=== PATIENT | female | born 1950 | race Caucasian/White ===

== ENCOUNTER → 2016-03-13 | Outpatient (CLI) | payer OTHER, MEDICARE | LOC: MMPC 09:00 | PROVIDERS: ATTEND Family Medicine | DX: D49.6 Neoplasm of unspecified behavior of brain (principal); E89.40 Asymptomatic postprocedural ovarian failure; R68.82 Decreased libido | CPT/HCPCS: G0463; J1000; J1071 ==

== ENCOUNTER 2016-04-12 02:57 | Observation (INO) | payer OTHER, MEDICARE ==
[2016-04-12] MEDS ORDERED: Sodium Chloride 0.9% 1,000 ML PRIMARY IV ONE (03:06)
[2016-04-12] MEDS ORDERED: NITROGLYCERIN 0.4 MG SL TAB (BOTTLE OF 3) SL ONE (03:06)
[2016-04-12] MEDS ORDERED: MORPHINE SULFATE 4 MG/1 ML IVP ONE (03:06)
[2016-04-12] MEDS ORDERED: ASPIRIN 81 MG (BABY) CHEWABLE TABLET PO ONE (03:06)
[2016-04-12] MEDS ORDERED: ONDANSETRON 4 MG/2 ML VIAL IVP ONE (03:08)
[2016-04-12] MEDS ORDERED: LORazepam 2 MG/1 ML VIAL ONE (03:09)
[2016-04-12 03:11] LABS: BASOPHILS # (AUTO) 0.07 10*3/UL; BASOPHILS % (AUTO) 0.8 % (0-1); HEMATOCRIT 40.2 % (37.0-47.0); HEMOGLOBIN 13.8 g/dL (12.0-16.0); IMM GRAN % (AUTO) 0.2 % (0-5); IMM GRAN# (AUTO) 0.02 10*3/UL; LYMPHOCYTES # (AUTO) 2.17 10*3/uL; LYMPHOCYTES % (AUTO) 24.5 % (10-50); MEAN CORPUSCULAR HEMOGLOBIN 33.2 PG (27-31); MEAN CORPUSCULAR HGB CONC 34.3 g/dL (33-37); MEAN PLATELET VOLUME 8.9 FL (7.4-12.2); MONOCYTES # (AUTO) 0.73 10*3/UL (0.3-0.8); MONOCYTES % (AUTO) 8.2 % (5-15); NEUTROPHILS # (AUTO) 5.79 10*3/UL; NEUTROPHILS % (AUTO) 65.3 % (50-80); PLATELET MORPHOLOGY COMMENT NORMAL MORPHOLOGY (NORM); RED BLOOD COUNT 4.16 10^6/uL (4.20-5.40); WHITE BLOOD COUNT 8.87 10^3/uL (4.8-10.8)
[2016-04-12] MEDS ORDERED: ASPIRIN 81 MG (BABY) CHEWABLE TABLET ONE (03:11)
[2016-04-12] MEDS ORDERED: NITROGLYCERIN 0.4 MG SL ONE (03:11)
--- NOTE | 2016-04-12 03:12 | PDOC ---
Chest Pain HPI - General Chief Complaint: Chest Pain Stated Complaint: CHEST PAIN Date Seen by Provider: 04/12/16 Time Seen by Provider: 03:08 Source: Patient, Spouse Exam Limitations: POSITIVE: Clinical condition Treatment Prior to Arrival: REPORTS: None Nurse's Notes Reviewed & Considered: Yes - History of Present Illness Initial Comments: Patient comes in tonight with chief complaint of chest pain. Patient awoke at approximately midnight with substernal chest pain with radiation to her neck and epigastrium. She has associated shortness of breath. She denies any fever or chills sweats, nausea vomiting or diarrhea, hematuria dysuria, no rashes. Body Location Affected: REPORTS: Chest Timing: REPORTS: Abrupt Duration: 1-3 hours Severity: Severe Context: REPORTS: Sleep Quality: REPORTS: "Pain", Sharpness, Pressure Radiation: REPORTS: None Associated Symptoms: REPORTS: Shortness of Breath, Hurts to Breathe Modifying Factors: improves with: None Reported Similar Symptoms Previously: No Recently seen/treated/hospitalized: No Any Prior Injuries Related to Current Complaint?: No - Patient Home Medications Home Medications: Home Medications Guaifenesin [Mucinex] 600 mg PO Q12H tab 07/11/14 Testosterone Cypionate [Depo-Testosterone] 0.25 ml IM MONTHLY #1 ml 08/24/14 Amitriptyline HCl 2 tab PO QHS PRN #180 tab 01/21/15 Orphenadrine Citrate 100 mg PO DAILY #30 tab-cap 05/16/15 Estradiol Cypionate [Depo-Estradiol] 0.75 ml IM MONTHLY #1 ml 11/08/15 Duloxetine HCl [Cymbalta] 60 mg ORAL QD #90 capsule 02/14/16 Omeprazole 1 cap ORAL QD #30 capsule 02/17/16 Lovastatin 1 tab PO QD #30 tab 03/19/16 - Patient Allergies Allergies/Adverse Reactions: Allergies Allergy/AdvReac Type Severity Reaction Status Date / Time No Known Allergies Allergy Verified 01/21/16 14:43 Past Medical History - heen HEENT History: Hard of Hearing Additional HEENT History: Lt ear, GLASSES Cardiovascular History: Denies History Respiratory History: Other (please comment) Additional Respiratory History: 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...[employer] shunt Blood Disorders: Denies History Psychiatric History: Depression History of Sexually Transmitted Diseases: No Cancer History: Brain History of MDRO: No History of Other Communicable Diseases: No History of Exposure to Communicable Disease: No Alcohol Use: Rarely Substance Use Type: None Previous Surgical History: Yes Type / Date of Surgery: Multiple brain and neck surgeriesfor glomus brain tumor , Right ear repair, tracheostomy, J[employer] shunt, PEG TUBE PLACEMENT, TONSILS, APPY, HYSTERECTOMY Anesthesia Reactions: No Malignant Hyperthermia: No Significant Family History: No pertinent family hx ROS - Limitations ROS Limitations: Clinical Condition Constitution: REPORTS: Denies Symptoms Cardiovascular: REPORTS: Chest Pain Respiratory: REPORTS: Hurts To Breathe, Shortness Of Breath Neurological: REPORTS: Denies Neuro Symptoms Gastrointestinal: REPORTS: Denies GI Symptoms Endocrine: REPORTS: Denies Symptoms Musculoskeletal: REPORTS: Denies MS Symptoms Genitourinary: REPORTS: Denies Symptoms Eyes: REPORTS: Denies Symptoms ENT: REPORTS: Denies Symptoms Skin: REPORTS: Denies Skin Symptoms Lympathic: REPORTS: Denies Lympathic Symptoms Immunologic: POSITIVE: Denies Symptoms Psychiatric: POSITIVE: Anxiety Chest Pain PE - General Appearance General Appearance: REPORTS: Alert, Cooperative, No Evidence of Trauma, Anxious , Severe Distress - HEENT HEENT: POSITIVE: Head Inspection Nml, Eyes Inspection Nml, Ears Inspection Nml, Nose Inspection Nml, PERRL, EOMI - Neck Neck: REPORTS: Normal Inspection - Respiratory Respiratory: REPORTS: Chest Non-Tender, Respiratory Distress, Distinct Pain on Movement, Decreased Air Movement - Cardiovascular Cardiovascular: REPORTS: Regular Rate and Rhythm, Heart Sounds Normal - Abdomen Abdomen: Soft: (All Quadrants), Normal Bowel Sounds: (All Quadrants), Denies Tenderness: (All Quadrants) - Skin Skin: REPORTS: Intact, Normal For Race, Warm, Dry, No Rash - Extremities Extremity: Non-Tender: (All Extremities), Normal ROM: (All Extremities), Normal Inspection: (All Extremities) - Neurological / Psychological Neurological: POSITIVE: Affect Apporpriate Chest Pain Progress - Results Reviewed by me Xrays/CTs/US Reviewed by me: Yes Discussed with Radiologist: Yes Lab Results Reviewed: Yes Lab Results:: Laboratory Results 04/12/16 04/12/16 Range/Units 03:06 03:13 WBC 8.87 (4.8-10.8) 10^3/uL RBC 4.16 L (4.20-5.40) 10^6/uL Hgb 13.8 (12.0-16.0) g/dL Hct 40.2 (37.0-47.0) % MCV 96.6 (81-99) FL MCH 33.2 H (27-31) PG MCHC 34.3 (33-37) g/dL RDW Std Deviation 41.3 (39-50) fL RDW Coeff of Rhett 12.0 (11.5-14.5) % Plt Count 414 H (140-350) 10*3/uL MPV 8.9 (7.4-12.2) FL Immature Gran % (Auto) 0.2 (0-5) % Neut % (Auto) 65.3 (50-80) % Lymph % (Auto) 24.5 (10-50) % Laurel % (Auto) 8.2 (5-15) % Eos % (Auto) 1.0 (0-8) % Baso % (Auto) 0.8 (0-1) % Immature Gran # (Auto) 0.02 10*3/UL Neut # (Auto) 5.79 10*3/UL Lymph # (Auto) 2.17 10*3/uL Laurel # (Auto) 0.73 (0.3-0.8) 10*3/UL Eos # (Auto) 0.09 10*3/UL Baso # (Auto) 0.07 10*3/UL WBC Morphology Comment Normal morphology (NORM) Plt Morphology Comment Normal morphology (NORM) RBC Morph Comment Normal morphology (NORM) D-Dimer 0.53 (0.00-0.59) mg/L Sodium 138 (135-145) meq/L Potassium 3.5 L (3.8-5.2) meq/L Chloride 96 L (98-112) meq/L Carbon Dioxide 31 (23-33) meq/L Anion Gap 11 (5-20) BUN 21 (7-22) mg/dL Creatinine 0.7 (0.50-1.20) mg/dL Estimated GFR > 60 (>60 ml/min/1.73m(2)) BUN/Creatinine Ratio 30.00 H (6-20) Glucose 102 (78-110) mg/dL Calculated Osmolality 288.0 (267-292) mOsm/kg Calcium 9.6 (8.7-10.7) mg/dL Magnesium 2.4 (1.6-2.4) mg/dL Total Bilirubin 0.6 (0.3-1.2) mg/dL AST 16 (8-39) IU/L ALT 29 (9-52) IU/L Alkaline Phosphatase 80 (38-126) IU/L Troponin I < 0.012 (< 0.040) ng/mL NT-Pro-B Natriuret Pep 53.8 (0-125) PG/ML Total Protein 8.1 H (6.1-8.0) g/dL Albumin 4.6 (3.5-4.8) g/dL Globulin 3.5 (2.50-4.10) g/dL Albumin/Globulin Ratio 1.30 (1.3-2.0) mg/g TSH 4.21 H (0.2700-4.2000) uIU/mL Free T4 0.99 (0.93-1.71) ng/dL EKG Interpretation:: POSITIVE: Normal Sinus Rhythm - Patient's Progress Pain Medication Addressed: POSITIVE: Yes Re-Examine Time: 05:20 Status: POSITIVE: Improved Quality Measure Initiative: CP/AMI: POSITIVE: EKG, ASA Quality Measure Initiative: CAP: POSITIVE: SaO2, VS, CXR or CT - Consult Consult (If Yes, Name of Consulting MD & Time Called): Yes (Dr. Salcido. 05:20) Consulting MD will see pt:: POSITIVE: [facility] [place] Admit Counseled: POSITIVE: Patient, Family, RE: Lab Results, RE: Radiology Results, RE : DX Patient Care Time - Estimated PCT Patient Care Time (In Minutes): 30 Vital Signs - Recent Vital Signs Vital Signs: Vital Signs (Last 8 hours) Temp Pulse Resp BP Pulse Ox 04/12/16 02:57 97.3 F 96 18 181/96 97 - VS Reviewed Vital Signs Reviewed: Yes Discharge Clinical Impression: Chest pain Discharge Disposition: Admit to Inpatient Condition: Good Patient Instructions Given at Discharge: Chest Pain (ED) Date Decision to Admit to Inpatient: 04/12/16 Time Decision to Admit to Inpatient: 05:21
[2016-04-12 03:22] LABS: ASPARTATE AMINO TRANSFERASE 16 IU/L (8-39); BILIRUBIN,TOTAL 0.6 mg/dL (0.3-1.2); BLOOD UREA NITROGEN 21 mg/dL (7-22); CALCIUM 9.6 mg/dL (8.7-10.7); CHLORIDE 96 meq/L (98-112); CREATININE 0.7 mg/dL (0.50-1.20); EST GLOMERULAR FILTRATION > 60 (>60 ml/min/1.73m(2)); GLUCOSE 102 mg/dL (78-110); MAGNESIUM 2.4 mg/dL (1.6-2.4); POTASSIUM 3.5 meq/L (3.8-5.2); SODIUM 138 meq/L (135-145); TOTAL PROTEIN 8.1 g/dL (6.1-8.0)
[2016-04-12] MEDS ORDERED: Belladon/PHENobarbital Elixir 10 ML, Lidocaine Viscous Liquid 2% 15 ML, Mag Hyd/Al Hyd/... PO ONE ×3 (03:23)
[2016-04-12 03:30] LABS: NT-PRO BNP 53.8 PG/ML (0-125)
[2016-04-12 03:49] LABS: FREE T4 (FREE THYROXINE) 0.99 ng/dL (0.93-1.71)
--- NOTE | 2016-04-12 04:59 | DI ---
HISTORY: Bilateral calf pain. Chest pain. TECHNIQUE: Sonographic Doppler images were obtained of the bilateral lower extremities were obtained and submitted for interpretation. FINDINGS: There is normal flow, compressibility and phasicity within the deep veins of the bilateral lower extremities. No evidence of deep vein thrombosis is noted. IMPRESSION: 1. No evidence of deep venous thrombosis.
--- NOTE | 2016-04-12 05:02 | EKG ---
[address] [address] Measurements Intervals Harvest Rate: 91 P: 11 MT: 123 QRS: 7 QRSD: 100 T: 17 QT: 385 QTc: 434 Interpretive Statements SINUS RHYTHM No previous ECG available for comparison Electronically Signed On 04-12-16 19:32:37 MST by Cristofer Funes [email or web address]
--- NOTE | 2016-04-12 07:26 | DI ---
HISTORY: Chest pain. TECHNIQUE: Contiguous axial images of the chest were obtained and submitted for interpretation. FINDINGS: There is cardiomegaly. There are small mediastinal lymph nodes. There are calcified hilar nodes bilaterally. There is no a xillary adenopathy. The trachea, main, and segmental bronchi demonstrate no endobronchial lesions. There is bibasilar ground glass opacity. This is most likely atelectasis, although fibrosis and scar ring can have a similar appearance. There is a PEG tube. There is no focal adrenal mass. Limited sections of the upper abdomen otherwise grossly unremarkable . There is no focal pulmonary nodule or pulmonary mass. The visualized osseous structures demonstrate no destructive abnormality. The visualized aorta appears grossly unremarkable, although this is not a CTA. Cholecystectomy clips are noted. There is a tracheostomy tube. IMPRESSION: 1. Bibasilar ground glass opacity most likely represents atelectasis. Fibrosis and scarring can have a similar appearance. Evolving infection difficult to exclude. 2. Cardiomegaly.
[2016-04-12] MEDS ORDERED: NITROGLYCERIN 0.4 MG SL TAB (BOTTLE OF 3) SL PRN (07:43)
[2016-04-12] MEDS ORDERED: MAG HYDROX/AL HYDROX/SIMETH 30 ML SUSP PO PRN (07:43)
[2016-04-12] MEDS ORDERED: AMITRIPTYLINE 10 MG PO PRN (07:43)
[2016-04-12] MEDS ORDERED: NORMAL SALINE 10 ML SYRINGE FLUSH IVP PRN (07:43)
[2016-04-12] MEDS ORDERED: CALCIUM CARBONATE 500 MG (TUMS) CHEWABLE TABLET PO PRN (07:43)
[2016-04-12] MEDS ORDERED: OMEPRAZOLE 40 MG CAPSULE PO SCH (07:45)
[2016-04-12] MEDS ORDERED: Pantoprazole Inj 40 MG in Normal Saline Flush 10 ML IVP SCH (09:00)
[2016-04-12] MEDS: ORPHENADRINE 100 MG PO SCH (09:08)
[2016-04-12] MEDS: DULOXETINE 60 MG CAPSULE PO SCH (09:08)
[2016-04-12] MEDS: HEPARIN 5000 UNIT/1 ML SUBCUT SCH ×2 (09:22→17:02)
[2016-04-12] MEDS ORDERED: KETOROLAC 30 MG/1 ML VIAL IVP SCH (09:45)
[2016-04-12] MEDS: GUAIFENESIN 600 MG TABLET PO SCH ×2 (09:53→21:05)
--- NOTE | 2016-04-12 11:54 | PDOC ---
History and Physical - History of Present Illness Chief Complaint: Chest pain History of Present Illness: This very nice 66-year-old female with past medical history significant for brain tumor with radiation patient is trached and with a PEG tube was complaining around midnight of some substernal chest pain denies any fever chills nausea or vomiting received nitroglycerin subsequently developed a headache from this was treated with the of 15 mg IV of Toradol which relieved her headache and also patient went to sleep she will "I saw her and as stating that her chest pain is improved and her headache is gone. Troponins remain negative she describes her pain as straight up and down when she points with it with her finger with no radiation CT scan of her chest which was done to look at her aorta Dr. Sorensen called the radiologist that I read he said that he cannot comment on the order because it was not a CTA and if he wanted information on the aorta we needed to order a CTA. Past Medical History Tobacco Use: Former Smoker Substance Use Type: None Medication / Allergies Home Medications: Home Medications Medication Instructions Recorded Confirmed Type Guaifenesin [Mucinex] 600 mg PO Q12H tab 07/11/14 04/12/16 History Testosterone Cypionate 0.25 ml IM MONTHLY #1 ml 08/24/14 04/12/16 Clinic [Depo-Testosterone] Amitriptyline HCl 2 tab PO QHS PRN #180 tab 01/21/15 04/12/16 Clinic Orphenadrine Citrate 100 mg PO DAILY #30 tab-cap 05/16/15 04/12/16 Clinic Estradiol Cypionate 0.75 ml IM MONTHLY #1 ml 11/08/15 01/21/16 Clinic [Depo-Estradiol] Duloxetine HCl [Cymbalta] 60 mg ORAL QD #90 capsule 02/14/16 04/12/16 Clinic Omeprazole 1 cap ORAL QD #30 capsule 02/17/16 04/12/16 Clinic Lovastatin 1 tab PO QD #30 tab 03/19/16 04/12/16 Clinic Allergies/Adverse Reactions: Allergies Allergy/AdvReac Type Severity Reaction Status Date / Time No Known Allergies Allergy Verified 01/21/16 14:43 Review of Systems - Review of Systems All Systems: Reviewed & No Additional Complaints Except as Stated ROS Unobtainable: Due to Endotracheal Tube - Respiratory Respiratory: DENIES: Negative System Review, Cough, Sputum, Dyspnea At Rest, Dyspnea with Exertion, Pleuritic Pain, Hemoptysis, Wheezing, Other, See HPI - Gastrointestinal Gastrointestinal / Abdominal: REPORTS: Heartburn - Genitourinary Genitourinary: DENIES: Negative System Review, Pain, Burning, Hematuria, Incontinence, Urgency, Hesitant Stream, Decreased Stream, Nocutria, Discharge, Sexual Dyfunction, Other, See HPI - Neurological Neurologic: DENIES: Negative System Review, Headache, Numbness/Paresthesia, Tremors, Weakness, Seizures, Head Trauma, LOC, Dizziness, Confusion, Memory Loss , Difficulty Walking, Incoordination, Other, See HPI Exam - Vitals Vital Signs: Vital Signs Pulse Rate 73 Height 5 ft 3 in Weight 56.699 kg - General General Appearance: POSITIVE: No Acute Distress, Cooperative - Neck Neck Exam: POSITIVE: Normal Inspection - Respiratory Respiratory Exam: POSITIVE: Clear to Auscultation - Bilaterally, Breathing Non Labored, Normal To Percussion, Normal to Percussion and Palpation - Cardiovascular Cardiovascular Exam: POSITIVE: RRR, No Clicks, No Gallops - GI/Abdominal GI/Abdominal Exam: POSITIVE: Normal Bowel Sounds, Soft Additional GI/Abdominal Exam Details: PEG tube and placement - Extremities Extremities Exam: POSITIVE: No Clubbing Present, No Edema Present, No Cyanosis Present - Neurological Neurological Exam: POSITIVE: Alert, Oriented x 3 Results - Labs CBC and BMP: 04/12/16 03:06 04/12/16 03:13 Labs - Last 24 Hours: Laboratory Results 04/12/16 Range/Units 07:55 Troponin I < 0.012 (< 0.040) ng/mL Assessment and Plan - Patient Problems (1) Chest pain Current Visit: Yes Status: Acute Comment: I believe this is not cardiac, troponins are negative. I believe this is reflux disease I will treat her with Protonix IV twice a day differential diagnosis also peptic ulcer disease. Patient agrees patient was seen with nurse Medel. I will also order a chest CTA to rule out aortic dissection will hydrate aggressively. I will also do a Lexiscan stress test tomorrow
--- NOTE | 2016-04-12 14:31 | DI ---
AP CHEST X-RAY, 04/12/2016 3:06 AM : Clinical History: Chest pain. Previous Exam: 07/05/2015. There is no acute soft tissue or bony abnormality. The patient has a permanent tracheostomy tube in t he position of the 2 appears normal on this AP projection. Heart size is normal. Lungs are clear. Med iastinal structures are normal. There are no pulmonary nodules. Reading: Normal chest x-ray. There has been no interval change.
[2016-04-12 14:32] LABS: CARDIAC CK 36 IU/L (30-135)
[2016-04-12 15:31] LABS: TROPONIN I < 0.012 ng/mL (< 0.040)
[2016-04-12] MEDS: KETOROLAC 30 MG/1 ML VIAL IVP SCH ×2 (15:47→21:04)
[2016-04-12] MEDS: LOVASTATIN 40 MG PO SCH (17:10)
[2016-04-12] MEDS ORDERED: Sodium Chloride 0.9% 1,000 ML ONE (18:02)
[2016-04-12] MEDS: Pantoprazole Inj 40 MG in Normal Saline Flush 10 ML IVP SCH (21:05)
[2016-04-13] MEDS: HEPARIN 5000 UNIT/1 ML SUBCUT SCH ×4 (02:52→23:26)
[2016-04-13] MEDS: KETOROLAC 30 MG/1 ML VIAL IVP SCH (04:46)
[2016-04-13 07:13] LABS: ASPARTATE AMINO TRANSFERASE 12 IU/L (8-39); BILIRUBIN,TOTAL 0.5 mg/dL (0.3-1.2); BLOOD UREA NITROGEN 16 mg/dL (7-22); BUN/CREATININE RATIO 22.85 (6-20); CALCIUM 8.2 mg/dL (8.7-10.7); CHLORIDE 105 meq/L (98-112); CREATININE 0.7 mg/dL (0.50-1.20); EST GLOMERULAR FILTRATION > 60 (>60 ml/min/1.73m(2)); GLUCOSE 71 mg/dL (78-110); HDL CHOLESTEROL 48 mg/dL (40-150); POTASSIUM 4.4 meq/L (3.8-5.2); SODIUM 137 meq/L (135-145); TRIGLYCERIDES 159 mg/dL (44-200)
[2016-04-13] MEDS: Pantoprazole Inj 40 MG in Normal Saline Flush 10 ML IVP SCH ×2 (09:39→20:44)
[2016-04-13] MEDS ORDERED: AMINOPHYLLINE IV ONE (10:00)
[2016-04-13] MEDS: GUAIFENESIN 600 MG TABLET PO SCH ×2 (10:51→20:43)
[2016-04-13] MEDS: DULOXETINE 60 MG CAPSULE PO SCH (10:51)
[2016-04-13] MEDS: ORPHENADRINE 100 MG PO SCH (10:51)
--- NOTE | 2016-04-13 11:04 | STRESSTEST ---
[facility] [place] Interpretive Statements this is a very nice 66 YO pt with hx of trachestomy and peg tube admitted with atypical chest pain and negative troponins x 3 . No acute changes with this portion of test ., will await pictures Electronically Signed On 04-16-16 08:22:28 [facility] by Simba Molina MD [email or web address]
--- NOTE | 2016-04-13 11:57 | PDOC(PROG) ---
Interval History: Patient is doing much better today her heartburn has resolved chest pain headache all gone she did pretty well with her stress test that we did this morning we will be awaiting results Objective : Data - Labs CBC and BMP: 04/12/16 03:06 04/13/16 06:52 Labs - Last 24 Hours: Laboratory Results 04/12/16 04/13/16 Range/Units 14:05 06:52 Sodium 137 (135-145) meq/L Potassium 4.4 (3.8-5.2) meq/L Chloride 105 (98-112) meq/L Carbon Dioxide 28 (23-33) meq/L Anion Gap 4 L (5-20) BUN 16 (7-22) mg/dL Creatinine 0.7 (0.50-1.20) mg/dL Estimated GFR > 60 (>60 ml/min/1.73m(2)) BUN/Creatinine Ratio 22.85 H (6-20) Glucose 71 L (78-110) mg/dL Calculated Osmolality 282.0 (267-292) mOsm/kg Calcium 8.2 L (8.7-10.7) mg/dL Total Bilirubin 0.5 (0.3-1.2) mg/dL AST 12 (8-39) IU/L ALT 24 (9-52) IU/L Alkaline Phosphatase 41 (38-126) IU/L Total Creatine Kinase 36 (30-135) IU/L Troponin I < 0.012 (< 0.040) ng/mL Total Protein 6.0 L (6.1-8.0) g/dL Albumin 3.4 L (3.5-4.8) g/dL Globulin 2.6 (2.50-4.10) g/dL Albumin/Globulin Ratio 1.30 (1.3-2.0) mg/g Triglycerides 159 (44-200) mg/dL Cholesterol 147 (120-200) mg/dL LDL Cholesterol, Calc 67.200 mg/dL VLDL Cholesterol 31 (0-40) mg/dL HDL Cholesterol 48 (40-150) mg/dL Cholesterol/HDL Ratio 3.06 (0-4.0) RATIO Objective : Exam - General General Appearance: Cooperative - Head Head Exam: Normal Inspection - Eye Eye Exam: Normal Appearance - Respiratory Respiratory Exam: Clear to Auscultation - Bilaterally, Breathing Non Labored, Normal To Percussion - Cardiovascular Cardiovascular Exam: RRR, No Murmur, No Clicks, No Gallops - Extremities Extremities Exam: Normal Inspection, No Clubbing Present, No Edema Present - Neurological Neurological Exam: Alert, Oriented x 3, CN II-XII Intact, No Facial Droop Assessment and Plan - Patient Problems (1) Chest pain Current Visit: Yes Status: Acute (2) Reflux esophagitis Current Visit: Yes Status: Acute Comment: Patient is receiving Protonix IV twice a day
[2016-04-13] MEDS: LOVASTATIN 40 MG PO SCH (17:17)
[2016-04-14 06:49] VITALS: RESP 18
[2016-04-14] MEDS: HEPARIN 5000 UNIT/1 ML SUBCUT SCH (07:48)
[2016-04-14] MEDS: GUAIFENESIN 600 MG TABLET PO SCH (08:22)
[2016-04-14] MEDS: ORPHENADRINE 100 MG PO SCH (08:22)
[2016-04-14] MEDS: Pantoprazole Inj 40 MG in Normal Saline Flush 10 ML IVP SCH (08:22)
[2016-04-14] MEDS: DULOXETINE 60 MG CAPSULE PO SCH (08:22)
[2016-04-14 11:35] VITALS: TEMP 97.8
--- NOTE | 2016-04-14 12:56 | DCSUMMARY ---
Hospitalization Summary Hospital Course: Final Discharge Diagnosis: chest pain reflux desease Diagnostic Data, Laboratory Data, and Procedures of Signifigance: Laboratory Results 04/12/16 04/12/16 04/12/16 Range/Units 03:06 03:13 07:55 WBC 8.87 (4.8-10.8) 10^3/uL RBC 4.16 L (4.20-5.40) 10^6/uL Hgb 13.8 (12.0-16.0) g/dL Hct 40.2 (37.0-47.0) % MCV 96.6 (81-99) FL MCH 33.2 H (27-31) PG MCHC 34.3 (33-37) g/dL RDW Std Deviation 41.3 (39-50) fL RDW Coeff of Rhett 12.0 (11.5-14.5) % Plt Count 414 H (140-350) 10*3/uL MPV 8.9 (7.4-12.2) FL Immature Gran % (Auto) 0.2 (0-5) % Neut % (Auto) 65.3 (50-80) % Lymph % (Auto) 24.5 (10-50) % [place] % (Auto) 8.2 (5-15) % Eos % (Auto) 1.0 (0-8) % Baso % (Auto) 0.8 (0-1) % Immature Gran # (Auto) 0.02 10*3/UL Neut # (Auto) 5.79 10*3/UL Lymph # (Auto) 2.17 10*3/uL [place] # (Auto) 0.73 (0.3-0.8) 10*3/UL Eos # (Auto) 0.09 10*3/UL Baso # (Auto) 0.07 10*3/UL WBC Morphology Comment Normal morphology (NORM) Plt Morphology Comment Normal morphology (NORM) RBC Morph Comment Normal morphology (NORM) D-Dimer 0.53 (0.00-0.59) mg/L Sodium 138 (135-145) meq/L Potassium 3.5 L (3.8-5.2) meq/L Chloride 96 L (98-112) meq/L Carbon Dioxide 31 (23-33) meq/L Anion Gap 11 (5-20) BUN 21 (7-22) mg/dL Creatinine 0.7 (0.50-1.20) mg/dL Estimated GFR > 60 (>60 ml/min/1.73m(2)) BUN/Creatinine Ratio 30.00 H (6-20) Glucose 102 (78-110) mg/dL Calculated Osmolality 288.0 (267-292) mOsm/kg Calcium 9.6 (8.7-10.7) mg/dL Magnesium 2.4 (1.6-2.4) mg/dL Total Bilirubin 0.6 (0.3-1.2) mg/dL AST 16 (8-39) IU/L ALT 29 (9-52) IU/L Alkaline Phosphatase 80 (38-126) IU/L Total Creatine Kinase (30-135) IU/L Troponin I < 0.012 < 0.012 (< 0.040) ng/mL NT-Pro-B Natriuret Pep 53.8 (0-125) PG/ML Total Protein 8.1 H (6.1-8.0) g/dL Albumin 4.6 (3.5-4.8) g/dL Globulin 3.5 (2.50-4.10) g/dL Albumin/Globulin Ratio 1.30 (1.3-2.0) mg/g Triglycerides (44-200) mg/dL Cholesterol (120-200) mg/dL LDL Cholesterol, Calc mg/dL VLDL Cholesterol (0-40) mg/dL HDL Cholesterol (40-150) mg/dL Cholesterol/HDL Ratio (0-4.0) RATIO TSH 4.21 H (0.2700-4.2000) uIU/mL Free T4 0.99 (0.93-1.71) ng/dL 04/12/16 04/13/16 Range/Units 14:05 06:52 WBC (4.8-10.8) 10^3/uL RBC (4.20-5.40) 10^6/uL Hgb (12.0-16.0) g/dL Hct (37.0-47.0) % MCV (81-99) FL MCH (27-31) PG MCHC (33-37) g/dL RDW Std Deviation (39-50) fL RDW Coeff of Rhett (11.5-14.5) % Plt Count (140-350) 10*3/uL MPV (7.4-12.2) FL Immature Gran % (Auto) (0-5) % Neut % (Auto) (50-80) % Lymph % (Auto) (10-50) % [place] % (Auto) (5-15) % Eos % (Auto) (0-8) % Baso % (Auto) (0-1) % Immature Gran # (Auto) 10*3/UL Neut # (Auto) 10*3/UL Lymph # (Auto) 10*3/uL [place] # (Auto) (0.3-0.8) 10*3/UL Eos # (Auto) 10*3/UL Baso # (Auto) 10*3/UL WBC Morphology Comment (NORM) Plt Morphology Comment (NORM) RBC Morph Comment (NORM) D-Dimer (0.00-0.59) mg/L Sodium 137 (135-145) meq/L Potassium 4.4 (3.8-5.2) meq/L Chloride 105 (98-112) meq/L Carbon Dioxide 28 (23-33) meq/L Anion Gap 4 L (5-20) BUN 16 (7-22) mg/dL Creatinine 0.7 (0.50-1.20) mg/dL Estimated GFR > 60 (>60 ml/min/1.73m(2)) BUN/Creatinine Ratio 22.85 H (6-20) Glucose 71 L (78-110) mg/dL Calculated Osmolality 282.0 (267-292) mOsm/kg Calcium 8.2 L (8.7-10.7) mg/dL Magnesium (1.6-2.4) mg/dL Total Bilirubin 0.5 (0.3-1.2) mg/dL AST 12 (8-39) IU/L ALT 24 (9-52) IU/L Alkaline Phosphatase 41 (38-126) IU/L Total Creatine Kinase 36 (30-135) IU/L Troponin I < 0.012 (< 0.040) ng/mL NT-Pro-B Natriuret Pep (0-125) PG/ML Total Protein 6.0 L (6.1-8.0) g/dL Albumin 3.4 L (3.5-4.8) g/dL Globulin 2.6 (2.50-4.10) g/dL Albumin/Globulin Ratio 1.30 (1.3-2.0) mg/g Triglycerides 159 (44-200) mg/dL Cholesterol 147 (120-200) mg/dL LDL Cholesterol, Calc 67.200 mg/dL VLDL Cholesterol 31 (0-40) mg/dL HDL Cholesterol 48 (40-150) mg/dL Cholesterol/HDL Ratio 3.06 (0-4.0) RATIO TSH (0.2700-4.2000) uIU/mL Free T4 (0.93-1.71) ng/dL renaldo scan stress test Negative History and Physical pertinent to Admission: HEENT History: Hard of Hearing Additional HEENT History: Lt ear, GLASSES Cardiovascular History: Denies History Respiratory History: Other (please comment) Additional Respiratory History: 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...AUCTIONE[employer] AUTOMOBILE shunt Blood Disorders: Denies History Psychiatric History: Depression History of Sexually Transmitted Diseases: No Cancer History: Brain History of MDRO: No History of Other Communicable Diseases: No History of Exposure to Communicable Disease: No Alcohol Use: Rarely Substance Use Type: None Previous Surgical History: Yes Type / Date of Surgery: Multiple brain and neck surgeriesfor glomus brain tumor , Right ear repair, tracheostomy, AUCTIONEER AUTOMOBILE shunt, PEG TUBE PLACEMENT, TONSILS, APPY, HYSTERECTOMY Course of Hospitalization: Is a very nice 66-year-old female with multiple complications from her glomus brain tumor she has a trach, AUCTIONEER AUTOMOBILE shunt, and PEG tube comes in with atypical chest pain renaldo scan stress test was performed and results are still pending. The chest pain she describes as more of a sensation of up and down when she touches her chest and I believe this is reflux disease with continued her with the IV Protonix twice a day which improved her reflux. Also we found out a few days later that she drinks a 32 ounce of coffee and lot days and also has a PEG tube feedings bolus to 5 at a time believe this combination is given her the reflux disease I suggested she cut down on the coffee and have longer any rales between her tube feedings which I believe pressure on her diaphragm. She is definitely improved and stable condition will be discharged home if stress test is negative which I think it will be. On the date of discharge, the patient was examined: Gen.: No acute distress, alert, nontoxic Heart: Regular rate and rhythm, no murmurs, clicks, gallops, or rubs Lungs: Clear to auscultation bilaterally, breathing is nonlabored Abdomen/GI: Normal tones on auscultation, soft, nontender, nondistended Musculoskeletal/extremities: No clubbing, cyanosis, or edema Vitals reviewed and are listed below Vital Signs (24 hrs) Temp Pulse Pulse Pulse Pulse Resp BP 04/14/16 11:34 97.8 F 70 18 138/59 04/14/16 09:48 64 04/14/16 07:24 68 04/14/16 07:00 57 L 04/14/16 06:49 97.3 F 59 L 18 150/63 04/14/16 04:43 97.3 F 68 19 156/50 04/14/16 03:00 55 L 04/14/16 01:00 98.0 F 58 L 19 169/64 04/13/16 23:00 59 L 04/13/16 20:39 97.6 F 74 20 168/82 04/13/16 19:00 67 73 04/13/16 16:40 97.7 F 59 L 18 155/51 04/13/16 15:00 61 Pulse Ox 04/14/16 11:34 97 04/14/16 09:48 04/14/16 07:24 04/14/16 07:00 04/14/16 06:49 93 04/14/16 04:43 94 04/14/16 03:00 04/14/16 01:00 95 04/13/16 23:00 04/13/16 20:39 94 04/13/16 19:00 04/13/16 16:40 93 04/13/16 15:00 Assessment and Plan: 1. As per discharge assessments above 2. Disposition: Home 3. Condition on discharge, stable and improved. 4. Diet: regular diet via PEG tube 5. Activities: resume normal activities 6. Follow-Up: 1. PCP 2. 7. Medications at the Time of Discharge: Home Medications Medication Instructions Recorded Confirmed Type Guaifenesin [Mucinex] 600 mg PO Q12H tab 07/11/14 04/12/16 History Testosterone Cypionate 0.25 ml IM MONTHLY #1 ml 08/24/14 04/12/16 Clinic [Depo-Testosterone] Amitriptyline HCl 2 tab PO QHS PRN #180 tab 01/21/15 04/12/16 Clinic Orphenadrine Citrate 100 mg PO DAILY #30 tab-cap 05/16/15 04/12/16 Clinic Estradiol Cypionate 0.75 ml IM MONTHLY #1 ml 11/08/15 01/21/16 Clinic [Depo-Estradiol] Duloxetine HCl [Cymbalta] 60 mg ORAL QD #90 capsule 02/14/16 04/12/16 Clinic Omeprazole 1 cap ORAL QD #30 capsule 02/17/16 04/12/16 Clinic Lovastatin 1 tab PO QD #30 tab 03/19/16 04/12/16 Clinic 8. Time, care, counseling and coordination of care for this discharge is greater than 30 minutes. Exam - Vitals Vital Signs: Vital Signs Temperature 97.8 F Temperature Source Temporal Artery Scan Pulse Rate [Apical] 64 Pulse Rate [Pulse Oximeter] 70 Pulse Rate [Telemetry] 68 Pulse Rate 57 Respiratory Rate 18 Blood Pressure [Right Arm] 138/59 Pulse Ox 97 Oxygen Delivery Method Room Air Height 5 ft 3 in Weight 60.963 kg Patient Problems - Patient Problem List (1) Chest pain Status: Acute (2) Reflux esophagitis Status: Acute
--- NOTE | 2016-04-14 13:57 | DI ---
2 DAY LEXISCAN STRESS & REST MYOCARDIAL PERFUSION SCANS, 04/13/2016-04/14/2016.: Clinical History: Chest pain. Previous Exam: None at this facility. Monitoring Physician: Dr. Stew Salcido. Dose: Stress dose: 33 mCi on 04/13/2016. Rest dose: 31 mCi on 04/14/2016. Quantitative Analysis: GoSave program with low dose limited CT chest scan attenuation correctio n. Exam Quality: Excellent. Rejected Beats: Stress = 0%; Rest = 0%. HR: Stress = 61-65 b/m; Rest = 66-6 9 b/m. Left ventricular chamber sizes are normal at stress and rest. Transient ischemic dilatation ratio is 1.02 (normal Pedrito TID <= 1.22; normal Lexiscan TID <= 1.33). Stress LVEF: 84%; rest LVEF: 71%. Stres s and rest myocardial perfusion, wall motion, and thickening are normal on both the attenuated correc shahzad and non-attenuated corrected scans. Limited CT scans of the heart show calcifications in the prox imal half of the LAD, and the proximal portion of the left circumflex artery. There are no lung nodul es or enlarged nodes. Readin. Normal stress and rest left ventricular chamber size. Transient ischemic dilatation ratio is norm al at 1.02. 2. Normal stress and rest LVEF values of 84%, and 71%, respectively. 3. Normal stress and rest myocardial perfusion, wall motion, and thickening. 4. Coronary artery disease manifested by calcifications in the LAD and left circumflex artery. There are no pulmonary nodules and there is no adenopathy.
== END 2016-04-14 15:49 | disposition home or self-care (01) ==
LOC: ER 02:57 → MED/SURG 07:30
PROVIDERS: ADMIT Internal Medicine; ATTEND Internal Medicine
DX: R07.9 Chest pain, unspecified (principal); K21.9 Gastro-esophageal reflux disease without esophagitis; D49.6 Neoplasm of unspecified behavior of brain
CPT/HCPCS: 36415 ×2; 71010; 71260; 78452; 80053 ×2; 80061; 82550; 83735; 83880; 84439; 84443; 84484; 85025; 85379; 93005; 93010; 93016; 93017; 93018; 93970; 94761 ×3; 96374 ×3; 96375 ×2; 96376 ×2; 99284 ×2; A9500; J0280; J1885 ×2; J2785; J1644; J2060; J2270; J2405; J3490; J7030

== ENCOUNTER → 2016-04-17 | Outpatient (CLI) | payer OTHER, MEDICARE | LOC: MMPC 09:00 | PROVIDERS: ATTEND Family Medicine | DX: D49.6 Neoplasm of unspecified behavior of brain (principal) | CPT/HCPCS: G0463; J1000; J1071 ==

== ENCOUNTER → 2016-05-21 | Outpatient (CLI) | payer OTHER, MEDICARE | LOC: MMPC 09:00 | PROVIDERS: ATTEND Family Medicine | DX: D49.6 Neoplasm of unspecified behavior of brain (principal) | CPT/HCPCS: G0463; J1000; J1071 ==

== ENCOUNTER 2016-06-04 14:22 | Observation (INO) | payer OTHER, MEDICARE ==
[2016-06-04] MEDS ORDERED: Sodium Chloride 0.9% 1,000 ML PRIMARY IV ONE (14:32)
[2016-06-04] MEDS ORDERED: NORMAL SALINE 10 ML SYRINGE FLUSH IVP PRN (14:32)
[2016-06-04] MEDS ORDERED: ONDANSETRON 4 MG/2 ML VIAL IVP ONE (14:32)
[2016-06-04] MEDS ORDERED: Pantoprazole Inj 40 MG in Normal Saline Flush 10 ML IVP ONE (14:32)
[2016-06-04] MEDS ORDERED: MORPHINE SULFATE 4 MG/1 ML IVP ONE (14:34)
[2016-06-04 14:45] LABS: BASOPHILS # (AUTO) 0.03 10*3/UL; BASOPHILS % (AUTO) 0.4 % (0-1); EOSINOPHILS % (AUTO) 1.3 % (0-8); HEMOGLOBIN 12.5 g/dL (12.0-16.0); LYMPHOCYTES # (AUTO) 1.02 10*3/uL; MEAN CORPUSCULAR HEMOGLOBIN 32.1 PG (27-31); MEAN CORPUSCULAR HGB CONC 32.1 g/dL (33-37); MEAN PLATELET VOLUME 9.3 FL (7.4-12.2); MONOCYTES # (AUTO) 0.66 10*3/UL (0.3-0.8); MONOCYTES % (AUTO) 8.8 % (5-15); NEUTROPHILS # (AUTO) 5.64 10*3/UL; NEUTROPHILS % (AUTO) 75.5 % (50-80)
--- NOTE | 2016-06-04 14:46 | EKG ---
[address] [address] Measurements Intervals [place] Rate: 74 P: 48 SC: 158 QRS: 62 QRSD: 102 T: 13 QT: 400 QTc: 427 Interpretive Statements SINUS RHYTHM Compared to ECG 04/12/2016 03:19:54 No significant changes Electronically Signed On 06-08-16 10:31:18 MDT by Simba Molina MD [email or web address]
[2016-06-04 14:48] LABS: PLATELET MORPHOLOGY COMMENT NORMAL MORPHOLOGY (NORM); RBC MORPHOLOGY COMMENT NORMAL MORPHOLOGY (NORM); WBC MORPHOLOGY COMMENT NORMAL MORPHOLOGY (NORM)
[2016-06-04 14:57] LABS: BLOOD UREA NITROGEN 34 mg/dL (7-22); BUN/CREATININE RATIO 48.57 (6-20); C-REACTIVE PROTEIN 7.8 mg/dL (0.0-0.9); CALCIUM 9.6 mg/dL (8.7-10.7); EST GLOMERULAR FILTRATION > 60 (>60 ml/min/1.73m(2)); LIPASE 41 IU/L (23-300); MAGNESIUM 2.3 mg/dL (1.6-2.4); SERUM ALBUMIN 4.2 g/dL (3.5-4.8)
--- NOTE | 2016-06-04 15:12 | PDOC ---
Abdomen/Flank HPI - General Chief Complaint: Abdomen Pain Stated Complaint: ABD PAIN Date Seen by Provider: 06/04/16 Time Seen by Provider: 14:25 Source: POSITIVE: Patient Exam Limitations: POSITIVE: No limitations Nurse's Notes Reviewed & Considered: Yes - History of Present Illness Initial Comments: The patient is a 66-year-old female who presents to the emergency department with upper abdominal pain. She states that on Wednesday evening she had onset of nausea and vomiting/dry heaves. She subsequently developed some pain in the epigastric region which has progressively worsened especially today. She currently rates her pain about at a 10 out of 10. She had initially presented to the walk-in clinic and they recommended she come here to the emergency room for evaluation. She has not had any further emesis since Wednesday. She states that she had a normal bowel movement this morning with no blood in the stool or black stool. She has not had any fevers or chills, chest pain or shortness of breath or any other associated symptoms. She does have a history of previous brain tumor and subsequent radiation treatments. As a result of all of this she has a feeding tube as well as a stoma. She also has a shunt. She denies any current headache. She reports she has had previous cholecystectomy and appendectomy. - Patient Home Medications Home Medications: Home Medications Guaifenesin [Mucinex] 600 mg PO Q12H tab 07/11/14 Testosterone Cypionate [Depo-Testosterone] 0.25 ml IM MONTHLY #1 ml 08/24/14 Amitriptyline HCl 2 tab PO QHS PRN #180 tab 01/21/15 Orphenadrine Citrate 100 mg PO DAILY #30 tab-cap 05/16/15 Estradiol Cypionate [Depo-Estradiol] 0.75 ml IM MONTHLY #1 ml 11/08/15 Duloxetine HCl [Cymbalta] 60 mg ORAL QD #90 capsule 02/14/16 Omeprazole 1 cap ORAL QD #30 capsule 02/17/16 Lovastatin 1 tab PO QD #30 tab 05/25/16 - Patient Allergies Allergies/Adverse Reactions: Allergies Allergy/AdvReac Type Severity Reaction Status Date / Time No Known Allergies Allergy Verified 06/04/16 14:26 Past Medical History - heen HEENT History: Hard of Hearing Additional HEENT History: Lt ear, GLASSES Cardiovascular History: Denies History Respiratory History: Other (please comment) Additional Respiratory History: 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...MILIEU TECHNICIAN shunt Blood Disorders: Previous Bld Transfusions Psychiatric History: Depression History of Sexually Transmitted Diseases: No Female Reproductive History: Denies History Obstetrical History: Denies History Cancer History: Brain In Past Year Been Physically Harmed or Verbally Threatened: No History of MDRO: No History of Other Communicable Diseases: No History of Exposure to Communicable Disease: No Tobacco Use: Former Smoker Alcohol Use: Rarely Substance Use Type: None Previous Surgical History: Yes Type / Date of Surgery: Multiple brain and neck surgeriesfor glomus brain tumor , Right ear repair, tracheostomy, MILIEU TECHNICIAN shunt, PEG TUBE PLACEMENT, TONSILS, APPY, HYSTERECTOMY Anesthesia Reactions: No Malignant Hyperthermia: No Significant Family History: No pertinent family hx Past Medical History Reviewed: Reviewed - No Changes ROS - Limitations ROS Limitations: No Limitations Constitution: DENIES: Chills, Fever Cardiovascular: REPORTS: Denies Cardiac Symptoms Respiratory: REPORTS: Denies Resp Symptoms Neurological: DENIES: Headache Gastrointestinal: REPORTS: Abdominal Pain, Nausea, Vomitting (Last emesis was Wednesday night). DENIES: Diarrhea, Black Stools, Bloody Stools, Constipation Endocrine: REPORTS: Denies Symptoms Musculoskeletal: REPORTS: Denies MS Symptoms Genitourinary: REPORTS: Denies Symptoms Skin: DENIES: Rash Abdominal/Flank Pain PE - General Appearance General Appearance: POSITIVE: Alert, Cooperative, No Acute Distress - HEENT HEENT: POSITIVE: Eyes Inspection Nml, Ears Inspection Nml, Nose Inspection Nml, Dry Mucous Membranes - Neck Neck: POSITIVE: Other (Stoma in place) - Respiratory Respiratory: POSITIVE: No Respiratory Distress, Breath Sounds Normal - Cardiovascular Cardiovascular: POSITIVE: Regular Rate and Rhythm, Heart Sounds Normal - Abdomen Abdomen: Soft: (All Quadrants), Normal Bowel Sounds: (All Quadrants), No Guarding: (All Quadrants), No Rebound: (All Quadrants) Additional Abdominal Details: She does have tenderness in the mid and epigastric regions, she does have a feeding tube in place, there is no surrounding erythema or drainage. - Skin Skin: POSITIVE: Intact, No Rash - Extremities Extremity: Normal ROM: (All Extremities), Normal Inspection: (All Extremities) Abdomen Progress - Results Reviewed by me Xrays/CTs/US Reviewed by me: Yes Discussed with Radiologist: Yes Radiology Findings: CT scan of the abdomen and pelvis reveals a gastrostomy tube which is in proper position, shunt which terminates in the right lower quadrant with some small amount of associated fluid, no acute findings per radiologist. Lab Results Reviewed: Yes Lab Results:: Laboratory Results 06/04/16 06/04/16 Range/Units 14:32 14:42 WBC 7.47 (4.8-10.8) 10^3/uL RBC 3.90 L (4.20-5.40) 10^6/uL Hgb 12.5 (12.0-16.0) g/dL Hct 39.0 (37.0-47.0) % MCV 100.0 H (81-99) FL MCH 32.1 H (27-31) PG MCHC 32.1 L (33-37) g/dL RDW Std Deviation 45.3 (39-50) fL RDW Coeff of Rhett 12.7 (11.5-14.5) % Plt Count 372 H (140-350) 10*3/uL MPV 9.3 (7.4-12.2) FL Immature Gran % (Auto) 0.3 (0-5) % Neut % (Auto) 75.5 (50-80) % Lymph % (Auto) 13.7 (10-50) % [place] % (Auto) 8.8 (5-15) % Eos % (Auto) 1.3 (0-8) % Baso % (Auto) 0.4 (0-1) % Immature Gran # (Auto) 0.02 10*3/UL Neut # (Auto) 5.64 10*3/UL Lymph # (Auto) 1.02 10*3/uL [place] # (Auto) 0.66 (0.3-0.8) 10*3/UL Eos # (Auto) 0.10 10*3/UL Baso # (Auto) 0.03 10*3/UL WBC Morphology Comment Normal morphology (NORM) Plt Morphology Comment Normal morphology (NORM) RBC Morph Comment Normal morphology (NORM) Sodium 139 (135-145) meq/L Potassium 3.9 (3.8-5.2) meq/L Chloride 96 L (98-112) meq/L Carbon Dioxide 32 (23-33) meq/L Anion Gap 11 (5-20) BUN 34 H (7-22) mg/dL Creatinine 0.7 (0.50-1.20) mg/dL Estimated GFR > 60 (>60 ml/min/1.73m(2)) BUN/Creatinine Ratio 48.57 H (6-20) Glucose 88 (78-110) mg/dL Calculated Osmolality 294.0 H (267-292) mOsm/kg Lactic Acid 0.8 (0.70-2.10) MMOL/L Calcium 9.6 (8.7-10.7) mg/dL Magnesium 2.3 (1.6-2.4) mg/dL Total Bilirubin 0.6 (0.3-1.2) mg/dL AST 19 (8-39) IU/L ALT 27 (9-52) IU/L Alkaline Phosphatase 73 (38-126) IU/L Troponin I < 0.012 (< 0.040) ng/mL C-Reactive Protein 7.8 H (0.0-0.9) mg/dL Total Protein 7.7 (6.1-8.0) g/dL Albumin 4.2 (3.5-4.8) g/dL Globulin 3.5 (2.50-4.10) g/dL Albumin/Globulin Ratio 1.20 L (1.3-2.0) mg/g Amylase 41 (30-110) U/L Lipase 41 (23-300) IU/L Ur Collection Type Clean catch urine Urine Color Yellow Urine Clarity Clear (CLEAR) Urine pH 6.5 (5.0-8.5) Ur Specific [place] 1.010 (1.005-1.030) Urine Protein 30 (NEG) mg/dl Urine Glucose (UA) Negative (NEG) mg/dL Urine Ketones Negative (NEG) Urine Occult Blood Negative (NEG) Urine Nitrate Negative (NEG) Urine Bilirubin Negative (NEG) Urine Urobilinogen 2.0 (0.2) EU/dL Ur Leukocyte Esterase Negative (NEG) Urine RBC None (NONE) /hpf Urine WBC None (NONE) Ur Squamous Epith Cells Many (NONE) Ur Renal Epithelial Cell None (NONE) Urine Crystals None Urine Bacteria Rare (NONE) Urine Casts None (NONE) Urine Mucus Rare (NONE) Urine Trichomonas None (NONE) Urine Yeast None (NONE) Ur Culture Indicated? Culture not set EKG Interpreted/Reviewed By Me:: Yes EKG Interpretation:: POSITIVE: Normal Sinus Rhythm, Normal Rate, Normal Intervals, Normal QRS, Normal ST/T - Patient's Progress MDM / ED Course: An IV was established and she did receive 4 mg of morphine and 4 mg of Zofran IV for pain and nausea. On arrival she was rating her pain at a 10 out of 10. She also received Protonix 40 mg IV. Her pain improved however only came down to about a 7 out of 10. She had a repeat dose of morphine and her pain improved slightly down to a 6 out of 10. Her lab work is essentially unremarkable except for slightly elevated BUN and elevated CRP. Urinalysis is normal. CT scan of the abdomen and pelvis reveals a gastrostomy tube in proper position, shunt terminating in the right lower quadrant with associated small amount of fluid, no acute findings per radiologist. These findings were discussed with the patient. She states that she feels better however still is having 6 out of 10 pain and nausea. Treatment options were discussed including outpatient management versus being admitted to the hospital. The patient felt more comfortable being admitted. I subsequently discussed the patient with Dr. Salcido and he has agreed to admit the patient for further care. - Consult Counseled: POSITIVE: Patient, RE: Lab Results, RE: Radiology Results, RE: DX, RE : Need for F/U Patient Care Time - Estimated PCT Patient Care Time (In Minutes): 30 Vital Signs - Recent Vital Signs Vital Signs: Vital Signs (Last 8 hours) Temp Pulse Resp BP Pulse Ox 06/04/16 17:01 97.0 F 76 16 119/74 97 06/04/16 15:30 81 16 127/64 93 06/04/16 14:22 97.9 F 82 16 122/79 94 - VS Reviewed Vital Signs Reviewed: Yes Discharge Clinical Impression: Abdominal pain, Gastritis Discharge Disposition: Admit to Observation Condition: Fair
[2016-06-04] MEDS ORDERED: MORPHINE SULFATE 2 MG/1 ML IVP ONE (16:17)
[2016-06-04 16:38] LABS: BILIRUBIN,URINE NEGATIVE (NEG); COLOR,URINE YELLOW; GLUCOSE, URINE (UA) NEGATIVE (NEG); NITRATE,URINE NEGATIVE (NEG); OCCULT BLOOD,URINE NEGATIVE (NEG); PH,URINE 6.5 (5.0-8.5); PROTEIN,URINE 30 mg/dl (NEG)
[2016-06-04 16:39] LABS: CLARITY,URINE CLEAR (CLEAR)
--- NOTE | 2016-06-04 16:40 | DI ---
CT ABDOMEN SCAN WITH IV CONTRAST, 06/04/2016 2:33 PM : Clinical History: Abdominal pain. Previous Exam: 06/07/2015. Scans are performed from the lower lung bases through the liver and kidneys with IV contrast. 95 ml o f Isovue 300 was injected IV. No oral or rectal contrast was ordered. The lung bases are clear. There is a roughly 11 mm diameter low-density lesion toward the lateral and anterior aspect of the right lobe of the liver and this was present before and has not changed. Sinc e the prior examination, the patient has had a cholecystectomy and the common bile duct measures 5 mm . There is a percutaneous feeding gastrostomy tube in place. There is shunt located between T11 and L 2 located in the thoracic canal and this communicates with the peritoneal cavity. There is no abnorma lity of the spleen, pancreas, and adrenal glands. Both kidneys are normal in size, shape, position an d contour. There is no hydronephrosis or hydroureter. No renal or ureteral calculi are present. There are no abnormal retrocrural or periaortic nodes. No ascites is present. READING: Normal CT abdomen scan. The patient has a feeding gastrostomy tube as well as a shunt catheter betwee n the thoracolumbar junction portion of the canal and the peritoneal cavity. CT PELVIS SCAN WITH IV CONTRAST, 06/04/2016 2:33 PM: Clinical History: See above. Previous Exam: 06/07/2015. Scans are performed from just superior to the umbilicus to the symphysis pubis with IV contrast. This is the same bolus of contrast used for the CT scans of the abdomen. Scans through the lower abdomen and pelvis show no masses. There is no adenopathy. There is "malrotat ion" of the cecum. The cecum is in the right upper quadrant in the gallbladder fossa. The appendix is normal. The small bowel, terminal ileum, and ileocecal valve are normal. The colon is also normal. T here are no hernias. The shunt catheter terminates in the pelvis in the right lower quadrant just sup erior to the bladder. In the right side of the pelvis, there is a fluid collection. The patient is st atus post hysterectomy and bilateral salpingo-oophorectomy. READING: There is a small fluid collection in the right side of the cul-de-sac and this is directly posterior to the location of the shunt catheter that terminates in the right lower quadrant and is inserted in the spinal canal at the thoracolumbar junction. The differential would be between CSF in the right si de of the pelvis versus true ascites.
[2016-06-04 16:42] LABS: SQUAMOUS EPITHELIAL CELL,UR MANY; URINE SAMPLE TYPE CLEAN CATCH URINE
[2016-06-04 16:43] LABS: BACTERIA,URINE RARE
--- NOTE | 2016-06-04 18:08 | PDOC ---
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 The IV Protonix last time I worked very well for her she was discharged home and was told that the she does not drink this much coffee but apparently she went home in [place] did the same thing comes back to the ER today with some epigastric pain which was relieved by Protonix and Dilaudid. Past Medical History Tobacco Use: Former Smoker Substance Use Type: None Medication / Allergies Home Medications: Home Medications Medication Instructions Recorded Confirmed Type Guaifenesin [Mucinex] 600 mg PO Q12H tab 07/11/14 06/04/16 History Testosterone Cypionate 0.25 ml IM MONTHLY #1 ml 08/24/14 06/04/16 Clinic [Depo-Testosterone] Amitriptyline HCl 2 tab PO QHS PRN #180 tab 01/21/15 06/04/16 Clinic Orphenadrine Citrate 100 mg PO DAILY #30 tab-cap 05/16/15 06/04/16 Clinic Estradiol Cypionate 0.75 ml IM MONTHLY #1 ml 11/08/15 06/04/16 Clinic [Depo-Estradiol] Duloxetine HCl [Cymbalta] 60 mg ORAL QD #90 capsule 02/14/16 06/04/16 Clinic Omeprazole 1 cap ORAL QD #30 capsule 02/17/16 06/04/16 Clinic Lovastatin 1 tab PO QD #30 tab 05/25/16 06/04/16 Clinic Allergies/Adverse Reactions: Allergies Allergy/AdvReac Type Severity Reaction Status Date / Time No Known Allergies Allergy Verified 06/04/16 14:26 Review of Systems - Review of Systems All Systems: Reviewed & No Additional Complaints Except as Stated - Respiratory Respiratory: DENIES: Negative System Review, Cough, Sputum, Dyspnea At Rest, Dyspnea with Exertion, Pleuritic Pain, Hemoptysis, Wheezing, Other, See HPI - Cardiovascular Cardiovascular: DENIES: Negative System Review, Chest Pain, Edema, Syncope, Palpitations, Orthopnea, Paroxysmal Nocturnal Dyspnea, Other, See HPI - Gastrointestinal Gastrointestinal / Abdominal: REPORTS: Nausea, Heartburn - Genitourinary Genitourinary: DENIES: Negative System Review, Pain, Burning, Hematuria, Incontinence, Urgency, Hesitant Stream, Decreased Stream, Nocutria, Discharge, Sexual Dyfunction, Other, See HPI Exam - General General Appearance: POSITIVE: Cooperative - Head Head Exam: POSITIVE: Normal Inspection - Eye Eye Exam: POSITIVE: Normal Appearance - Respiratory Respiratory Exam: POSITIVE: Clear to Auscultation - Bilaterally, Breathing Non Labored, Normal To Percussion, Normal to Percussion and Palpation - Cardiovascular Cardiovascular Exam: POSITIVE: RRR, No Murmur, No Clicks - GI/Abdominal GI/Abdominal Exam: POSITIVE: Normal Bowel Sounds, Non Tender, Non Distended, Soft - Extremities Extremities Exam: POSITIVE: No Clubbing Present, No Edema Present, No Cyanosis Present Results - Labs CBC and BMP: 06/04/16 14:42 06/04/16 14:42 Assessment and Plan - Patient Problems (1) Abdominal pain Current Visit: Yes Status: Acute (2) Gastritis Current Visit: Yes Status: Acute (3) Reflux esophagitis Current Visit: No Status: Acute - Assessment / Plan Additional Assessment/Plan Details: #1 gastritis with severe reflux disease we'll continue IV Protonix and pain control nothing by mouth since she has a PEG tube her CT scan showed no acute findings of fluid. This will resolve shortly and patient can be discharged home Continue her usual medications Photo / Body Diagrams - Uploaded Photos Uploaded Photos:
[2016-06-04] MEDS ORDERED: LIDOCAINE W/ SODIUM BICARB 0.5 ML SYR SUBD PRN (18:33)
[2016-06-04] MEDS ORDERED: ONDANSETRON 4 MG/2 ML VIAL IVP PRN (18:33)
[2016-06-04] MEDS ORDERED: ESTRADIOL CYPIONATE IM SCH (18:33)
[2016-06-04] MEDS: HYDROmorphone 2 MG/1 ML IVP PRN (20:19)
[2016-06-04] MEDS: Metoclopramide Inj 10 MG/2 ML VIAL IVP SCH (20:20)
[2016-06-04] MEDS: NORMAL SALINE 10 ML SYRINGE FLUSH IVP PRN (20:20)
[2016-06-04] MEDS: GUAIFENESIN 600 MG TABLET PO SCH (20:27)
[2016-06-04] MEDS ORDERED: Simvastatin Tab 20 MG TAB PO SCH (21:00)
[2016-06-04] MEDS ORDERED: AMITRIPTYLINE 25 MG TABLET PO PRN (21:00)
[2016-06-05] MEDS: HYDROmorphone 2 MG/1 ML IVP PRN (04:28)
[2016-06-05] MEDS: Metoclopramide Inj 10 MG/2 ML VIAL IVP SCH (04:29)
[2016-06-05] MEDS: NORMAL SALINE 10 ML SYRINGE FLUSH IVP PRN ×2 (04:29→09:23)
[2016-06-05 07:55] VITALS: RESP 20; TEMP 97.5
[2016-06-05] MEDS ORDERED: ENOXAPARIN SODIUM 40 MG/0.4 ML SYRINGE SUBCUT SCH (09:00)
[2016-06-05] MEDS ORDERED: Simvastatin Tab 20 MG TAB PO SCH (09:00)
[2016-06-05] MEDS ORDERED: DULOXETINE 60 MG CAPSULE PO SCH (09:00)
[2016-06-05] MEDS ORDERED: Pantoprazole Inj 40 MG in Normal Saline Flush 10 ML IVP SCH (09:00)
--- NOTE | 2016-06-05 09:04 | DCSUMMARY ---
Hospitalization Summary Hospital Course: Final Discharge Diagnosis: Current Visit Problems Problem Status Priority Diagnosed Code Abdominal pain Acute R10.9 Gastritis Acute K29.70 Reflux disease Diagnostic Data, Laboratory Data, and Procedures of Signifigance: Laboratory Results 06/04/16 06/04/16 Range/Units 14:32 14:42 WBC 7.47 (4.8-10.8) 10^3/uL RBC 3.90 L (4.20-5.40) 10^6/uL Hgb 12.5 (12.0-16.0) g/dL Hct 39.0 (37.0-47.0) % MCV 100.0 H (81-99) FL MCH 32.1 H (27-31) PG MCHC 32.1 L (33-37) g/dL RDW Std Deviation 45.3 (39-50) fL RDW Coeff of Rhett 12.7 (11.5-14.5) % Plt Count 372 H (140-350) 10*3/uL MPV 9.3 (7.4-12.2) FL Immature Gran % (Auto) 0.3 (0-5) % Neut % (Auto) 75.5 (50-80) % Lymph % (Auto) 13.7 (10-50) % [place] % (Auto) 8.8 (5-15) % Eos % (Auto) 1.3 (0-8) % Baso % (Auto) 0.4 (0-1) % Immature Gran # (Auto) 0.02 10*3/UL Neut # (Auto) 5.64 10*3/UL Lymph # (Auto) 1.02 10*3/uL [place] # (Auto) 0.66 (0.3-0.8) 10*3/UL Eos # (Auto) 0.10 10*3/UL Baso # (Auto) 0.03 10*3/UL WBC Morphology Comment Normal morphology (NORM) Plt Morphology Comment Normal morphology (NORM) RBC Morph Comment Normal morphology (NORM) Sodium 139 (135-145) meq/L Potassium 3.9 (3.8-5.2) meq/L Chloride 96 L (98-112) meq/L Carbon Dioxide 32 (23-33) meq/L Anion Gap 11 (5-20) BUN 34 H (7-22) mg/dL Creatinine 0.7 (0.50-1.20) mg/dL Estimated GFR > 60 (>60 ml/min/1.73m(2)) BUN/Creatinine Ratio 48.57 H (6-20) Glucose 88 (78-110) mg/dL Calculated Osmolality 294.0 H (267-292) mOsm/kg Lactic Acid 0.8 (0.70-2.10) MMOL/L Calcium 9.6 (8.7-10.7) mg/dL Magnesium 2.3 (1.6-2.4) mg/dL Total Bilirubin 0.6 (0.3-1.2) mg/dL AST 19 (8-39) IU/L ALT 27 (9-52) IU/L Alkaline Phosphatase 73 (38-126) IU/L Troponin I < 0.012 (< 0.040) ng/mL C-Reactive Protein 7.8 H (0.0-0.9) mg/dL Total Protein 7.7 (6.1-8.0) g/dL Albumin 4.2 (3.5-4.8) g/dL Globulin 3.5 (2.50-4.10) g/dL Albumin/Globulin Ratio 1.20 L (1.3-2.0) mg/g Amylase 41 (30-110) U/L Lipase 41 (23-300) IU/L Ur Collection Type Clean catch urine Urine Color Yellow Urine Clarity Clear (CLEAR) Urine pH 6.5 (5.0-8.5) Ur Specific [place] 1.010 (1.005-1.030) Urine Protein 30 (NEG) mg/dl Urine Glucose (UA) Negative (NEG) mg/dL Urine Ketones Negative (NEG) Urine Occult Blood Negative (NEG) Urine Nitrate Negative (NEG) Urine Bilirubin Negative (NEG) Urine Urobilinogen 2.0 (0.2) EU/dL Ur Leukocyte Esterase Negative (NEG) Urine RBC None (NONE) /hpf Urine WBC None (NONE) Ur Squamous Epith Cells Many (NONE) Ur Renal Epithelial Cell None (NONE) Urine Crystals None Urine Bacteria Rare (NONE) Urine Casts None (NONE) Urine Mucus Rare (NONE) Urine Trichomonas None (NONE) Urine Yeast None (NONE) Ur Culture Indicated? Culture not set History and Physical pertinent to Admission: Course of Hospitalization: This very nice 66-year-old female known to our service she comes in with severe reflux disease was started on IV Protonix and now was given also Reglan this really improved her reflux and down it is now resolved she is back to her normal baseline and will really like to go home we discussed the sending her home on Reglan and she does agree maybe this will help her in the future with her reflux she will follow-up with her primary care physician as an outpatient will receive resume her tube feeds at home On the date of discharge, the patient was examined: Gen.: No acute distress, alert, nontoxic Heart: Regular rate and rhythm, no murmurs, clicks, gallops, or rubs Lungs: Clear to auscultation bilaterally, breathing is nonlabored Abdomen/GI: Normal tones on auscultation, soft, nontender, nondistended Musculoskeletal/extremities: No clubbing, cyanosis, or edema Vitals reviewed and are listed below Assessment and Plan: 1. As per discharge assessments above 2. Disposition: Home 3. Condition on discharge, stable and improved. 4. Diet: regular diet 5. Activities: resume normal activities 6. Follow-Up: 1. PCP 2. 7. Medications at the Time of Discharge: 8. Time, care, counseling and coordination of care for this discharge is greater than 30 minutes. Exam - Vitals Vital Signs: Vital Signs Temperature 97.5 F Temperature Source Oral Pulse Rate [Apical] 68 Pulse Rate [Pulse Oximeter 61 Left] Respiratory Rate 20 Blood Pressure [Left Arm] 115/54 Blood Pressure [Right Arm] 112/50 Pulse Ox 90 Oxygen Flow Rate 16 Oxygen Delivery Method Room Air Height 5 ft 3 in Weight 65.862 kg Patient Problems - Patient Problem List (1) Abdominal pain Current Visit: Yes Status: Acute (2) Gastritis Current Visit: Yes Status: Acute (3) Reflux esophagitis Current Visit: No Status: Acute
[2016-06-05] MEDS: GUAIFENESIN 600 MG TABLET PO SCH (09:23)
== END 2016-06-05 10:18 | disposition home or self-care (01) ==
LOC: ER 14:22 → MED/SURG 17:17
PROVIDERS: ADMIT Internal Medicine; ATTEND Internal Medicine
DX: K29.70 Gastritis, unspecified, without bleeding (principal); K21.0 Gastro-esophageal reflux disease with esophagitis
CPT/HCPCS: 74177; 80053; 81001; 81003; 82150; 83605; 83690; 83735; 84484; 85025; 86140; 93005; 93010; 96374 ×2; 96375 ×2; 96376; 99284 ×2; J1650; J2765 ×2; J1170; J2270; J2405; J3490; J7030

== ENCOUNTER → 2016-06-04 | Outpatient (CLI) | payer OTHER, MEDICARE | LOC: MMPC 09:00 | DX: R10.0 Acute abdomen (principal) | CPT/HCPCS: 99213; G0463 ==

== ENCOUNTER → 2016-06-25 | Outpatient (CLI) | payer OTHER, MEDICARE | LOC: MMPC 09:00 | PROVIDERS: ATTEND Family Medicine | DX: D49.6 Neoplasm of unspecified behavior of brain (principal) | CPT/HCPCS: G0463; J1000; J1071 ==

== ENCOUNTER → 2016-06-29 | Outpatient (CLI) | payer OTHER, MEDICARE | LOC: MMPC 09:00 | PROVIDERS: ATTEND Family Medicine | DX: K21.9 Gastro-esophageal reflux disease without esophagitis (principal); G47.00 Insomnia, unspecified; Z93.0 Tracheostomy status | CPT/HCPCS: 99214; G0463 ==

== ENCOUNTER → 2016-07-16 | Outpatient (CLI) | payer OTHER, MEDICARE | LOC: MMPC 11:11 | PROVIDERS: ATTEND Surgery | DX: K94.20 Gastrostomy complication, unspecified (principal); Z93.1 Gastrostomy status | CPT/HCPCS: 99212; G0463 ==

== ENCOUNTER → 2016-07-30 | Outpatient (CLI) | payer OTHER, MEDICARE | LOC: MMPC 09:00 | PROVIDERS: ATTEND Family Medicine | DX: D49.6 Neoplasm of unspecified behavior of brain (principal) | CPT/HCPCS: G0463; J1000; J1071 ==

== ENCOUNTER → 2016-09-04 | Outpatient (CLI) | payer OTHER, MEDICARE | LOC: MMPC 09:00 | PROVIDERS: ATTEND Family Medicine | DX: D49.6 Neoplasm of unspecified behavior of brain (principal); E89.40 Asymptomatic postprocedural ovarian failure; R68.82 Decreased libido | CPT/HCPCS: G0463; J1000; J1071 ==

== ENCOUNTER 2017-04-11 12:12 | Observation (INO) ==
[2017-04-11] MEDS ORDERED: NORMAL SALINE 10 ML SYRINGE FLUSH IVP PRN ×3 (12:34→14:10)
[2017-04-11] MEDS ORDERED: Sodium Chloride 0.9% 1,000 ML PRIMARY IV ONE (12:34)
[2017-04-11 13:02] LABS: BASOPHILS # (AUTO) 0.05 10*3/UL; BASOPHILS % (AUTO) 0.6 % (0-1); EOSINOPHILS # (AUTO) 0.15 10*3/UL; EOSINOPHILS % (AUTO) 1.8 % (0-8); Hematocrit [HCT] 39.8 % (37.0-47.0); Hemoglobin [HGB] 12.8 g/dL (12.0-16.0); LYMPHOCYTES # (AUTO) 0.88 10*3/uL; MEAN CORPUSCULAR HEMOGLOBIN 31.8 PG (27-31); MEAN CORPUSCULAR HGB CONC 32.2 g/dL (33-37); MEAN CORPUSCULAR VOLUME 98.8 FL (81-99); MEAN PLATELET VOLUME 9.6 FL (7.4-12.2); MONOCYTES % (AUTO) 7.2 % (5-15); NEUTROPHILS % (AUTO) 79.6 % (50-80); RED BLOOD COUNT 4.03 10^6/uL (4.20-5.40)
[2017-04-11 13:07] LABS: PLATELET MORPHOLOGY COMMENT NORMAL MORPHOLOGY (NORM); RBC MORPHOLOGY COMMENT NORMAL MORPHOLOGY (NORM); WBC MORPHOLOGY COMMENT NORMAL MORPHOLOGY (NORM)
--- NOTE | 2017-04-11 13:10 | PDOC ---
General Adult HPI - General Chief Complaint: General Medical Stated Complaint: FEEDING TUBE COMING OUT Date Seen by Provider: 04/11/17 Time Seen by Provider: 12:25 Source: POSITIVE: Patient Exam Limitations: POSITIVE: No limitations Nurse's Notes Reviewed & Considered: Yes - History of Present Illness Initial Comment: The patient is a 67-year-old female who presents to the emergency department with complaints of leakage from her feeding tube. She states that this morning it seemed like the tube was partially coming out. She also has had some leakage around the tube. For the past couple of days she has also had increased soreness at the insertion site. She denies any fevers or chills. She does not have any associated generalized abdominal pain. Have you received a tetanus shot in the past 10 years?: Yes - Patient Home Medications Home Medications: Home Medications Guaifenesin [Mucinex] 600 mg PO Q12H tab 07/11/14 Testosterone Cypionate [Depo-Testosterone] 0.25 ml IM MONTHLY #1 ml 08/24/14 duloxetine 60 mg capsule,delayed release 60 mg ORAL QD #90 cap 11/16/16 amitriptyline 10 mg tablet 20 mg PO QHS #180 tab 11/25/16 hydrocodone 5 mg-acetaminophen 325 mg tablet 1 tab PO Q4-6H PRN #14 tab metoclopramide 10 mg tablet 10 mg PO DAILY #90 tab 12/30/16 estradiol cypionate 5 mg/mL intramuscular oil 3.7 mg IM MONTHLY #1 ml 01/18/17 lovastatin 40 mg tablet 40 mg PO QD #90 tab 03/16/17 omeprazole 40 mg capsule,delayed release 40 mg PO QD #90 cap 03/16/17 orphenadrine citrate ER 100 mg tablet,extended release 100 mg PO DAILY #90 tab- cap 03/25/17 - Patient Allergies Allergies/Adverse Reactions: Allergies 3 Allergy/AdvReac Type Severity Reaction Status Date / Time No Known Allergies Allergy Verified 04/11/17 13:05 Past Medical History - heen HEENT History: Hard of Hearing Additional HEENT History: Lt ear, GLASSES Cardiovascular History: Hypertension Respiratory History: Other (please comment) Additional Respiratory History: 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...ATTACHE shunt Blood Disorders: Previous Bld Transfusions Psychiatric History: Depression History of Sexually Transmitted Diseases: No Cancer History: Brain History of MDRO: No History of Other Communicable Diseases: No History of Exposure to Communicable Disease: No Alcohol Use: Rarely In the Past 12 Months, Have Used or Abuse Any Substance: None Previous Surgical History: Yes Type / Date of Surgery: Multiple brain and neck surgeriesfor glomus brain tumor , Right ear repair, tracheostomy, ATTACHE shunt, PEG TUBE PLACEMENT, TONSILS, APPY, HYSTERECTOMY Anesthesia Reactions: No Malignant Hyperthermia: No Significant Family History: No pertinent family hx Past Medical History Reviewed: Reviewed - No Changes ROS - Limitations ROS Limitations: No Limitations Constitution: DENIES: Chills, Fever Cardiovascular: REPORTS: Denies Cardiac Symptoms Respiratory: REPORTS: Denies Resp Symptoms General Adult Exam - General Appearance General Appearance: POSITIVE: Alert, Cooperative, No Acute Distress - HEENT HEENT: POSITIVE: Head Inspection Nml, Other (She does have an indwelling trach tube) - Respiratory Respiratory: POSITIVE: No Respiratory Distress, Breath Sounds Normal - Cardiovascular Cardiovascular: POSITIVE: Regular Rate & Rhythm, No Murmur - Abdomen Additional Abdominal Details: She does have a feeding tube located in the left upper abdomen, at the insertion site there is significant erythema and swelling as well as some necrotic appearing tissue at the insertion site itself, there is some mild surrounding erythema and induration, the abdominal exam is otherwise benign - Skin Skin: POSITIVE: Normal Color, No Rash General Adult Progress - Results Reviewed by me Lab Results Reviewed by Me: Yes CBC and BMP: 04/11/17 12:58 04/11/17 12:58 - Patient's Progress MDM / ED Course: The insertion site for the feeding tube appears to be infected and partially necrotic. Surgical consultation is obtained from Dr. Whitney. An IV was established and blood cultures and lactate were drawn with initial IV start. Dr. Whitney evaluated the patient here in the emergency department. The feeding tube was almost completely dislodged and the balloon was in the subcutaneous region, when the tube was removed tube feeding fluid started pouring out of the hole. There was some concern that this eating may have been collecting in the subcutaneous space. Colostomy bag was placed to collect drainage after suctioning. Current plan is for admission to the hospital. She is going to receive antibiotics and have a CT scan. She will need replacement of her G-tube. - Consult Counseled: POSITIVE: Patient, RE: Lab Results, RE: DX Patient Care Time - Estimated PCT Patient Care Time (In Minutes): 30 Vital Signs - Recent Vital Signs Vital Signs: Vital Signs (Last 8 hours) Temp Pulse Resp BP Pulse Ox 04/11/17 12:20 96.3 F L 84 18 141/100 94 - VS Reviewed Vital Signs Reviewed: Yes Discharge Clinical Impression: Complication of gastrostomy tube, Skin breakdown at gastrostomy tube site Discharge Disposition: Admit to Observation Condition: Fair
[2017-04-11 13:28] LABS: BLOOD UREA NITROGEN 29 mg/dL (7-22); BUN/CREATININE RATIO 41.42 (6-20); SERUM ALBUMIN 4.2 g/dL (3.5-4.8)
--- NOTE | 2017-04-11 13:53 | PDOC ---
HPI - History of Present Illness Date of Service: 04/11/17 Time of Service: 13:50 Chief Complaint: Abdominal pain and leaking PEG tube History of Present Illness: Patient started having increasing abdominal pain and let take tube leaking. Past Medical History Medical History: Multiple medical problems as well documented in her chart. Surgical History: Multiple surgeries as documented in her chart. In the Past 12 Months, Have Used or Abuse Any of the Following Substance: None Medication / Allergies Home Medications: Home Medications 3 Medication Instructions Recorded Confirmed Type Guaifenesin [Mucinex] 600 mg PO Q12H tab 07/11/14 04/11/17 History Testosterone Cypionate 0.25 ml IM MONTHLY #1 ml 08/24/14 04/11/17 History [Depo-Testosterone] duloxetine 60 mg capsule,delayed 60 mg ORAL QD #90 cap 11/16/16 04/11/17 Rx release amitriptyline 10 mg tablet 20 mg PO QHS #180 tab 11/25/16 04/11/17 Rx hydrocodone 5 mg-acetaminophen 325 1 tab PO Q4-6H PRN #14 tab 11/30/16 04/11/17 Rx mg tablet metoclopramide 10 mg tablet 10 mg PO DAILY #90 tab 12/30/16 04/11/17 Clinic estradiol cypionate 5 mg/mL 3.7 mg IM MONTHLY #1 ml 01/18/17 04/11/17 Rx intramuscular oil lovastatin 40 mg tablet 40 mg PO QD #90 tab 03/16/17 04/11/17 Rx omeprazole 40 mg capsule,delayed 40 mg PO QD #90 cap 03/16/17 04/11/17 Rx release orphenadrine citrate ER 100 mg 100 mg PO DAILY #90 tab-cap 03/25/17 04/11/17 Rx tablet,extended release Allergies/Adverse Reactions: Allergies 3 Allergy/AdvReac Type Severity Reaction Status Date / Time No Known Allergies Allergy Verified 04/11/17 13:05 Review of Systems - Review of Systems All Systems: Reviewed & No Additional Complaints Except as Stated Exam - Vitals Vital Signs: Vital Signs Height 5 ft 3 in Weight 115 lb - General General Appearance: Cooperative, Mild Distress - Eye Eye Exam: POSITIVE: Normal Appearance, PERRL - Respiratory Respiratory Exam: POSITIVE: Clear to Auscultation - Bilaterally - Cardiovascular Cardiovascular Exam: POSITIVE: RRR - GI/Abdominal GI/Abdominal Exam: POSITIVE: Non Tender (Patient has some necrosis around PEG tube site I can obviously see the balloon just underneath the skin. After removing this there is copious amount of purulent material and tube feedings.), Soft Results - Labs CBC and BMP: 04/11/17 12:58 04/11/17 12:58 Assessment and Plan - Patient Problems (1) Abdominal pain Current Visit: No Status: Acute Code(s): R10.9 - Unspecified abdominal pain (2) Complication of feeding tube Current Visit: No Status: Acute Code(s): K94.23 - Gastrostomy malfunction - Assessment / Plan Additional Assessment/Plan Details: It is obvious that the PEG tube ischemic bowel the stomach and descending below the skin. The question is whether this still communication to the stomach are all this liquid was dissected into the subcutaneous tissue the muscle are intra- abdominally. Patient does not have an acute surgical abdomen at this time therefore think we can do an adequate workup. Will admit the patient started IV fluids make nothing by mouth get a CT scan of the abdomen. If the CT scan shows a large cavity will need this to heal and be adequately drained. After that happens I can reinsert a new PEG feeding tube. If there is no large cavity or obvious abscesses that I get a feeding tube placed a lot sooner.
[2017-04-11] MEDS ORDERED: LIDOCAINE W/ SODIUM BICARB 0.5 ML SYR SUBD PRN (14:10)
[2017-04-11] MEDS ORDERED: D5-1/2NS + 10mEq KCL 1,000 ML PRIMARY IV ONE (14:10)
[2017-04-11] MEDS: MORPHINE SULFATE 2 MG/1 ML IVP PRN (14:55)
--- NOTE | 2017-04-11 15:38 | DI ---
EXAM: CT Abdomen and Pelvis Without Intravenous Contrast CLINICAL HISTORY: ITS.REASON fistulia Physician Notes: Tech Comments: TECHNIQUE: Axial computed tomography images of the abdomen and pelvis without intravenous contrast. COMPARISON: /. FINDINGS: Lower thorax: Mild subsegmental atelectasis ABDOMEN: Liver: Unremarkable. Gallbladder and bile ducts: Cholecystectomy. No clear ductal dilation. Pancreas: Unremarkable. No ductal dilation. Spleen: Unremarkable. No splenomegaly. Adrenals: Unremarkable. No mass. Kidneys and ureters: Unremarkable. No obstructing stones. No hydronephrosis. Stomach and bowel: Chronic gastrostomy tube tract in the leftward upper abdomen. Tube has been removed in the interval. No SBO. Appendix: Not clearly identified. PELVIS: Bladder: Unremarkable. No stones. Reproductive: Hysterectomy. ABDOMEN and PELVIS: Intraperitoneal space: Small amount of free pelvic fluid. Could be attributable to CSF shunt catheter, terminating in the left lower quadrant. No pseudocysts. No loculated abscess. No free air. Bones/joints: No acute fracture. Advanced L5-S1 lordosis. Soft tissues: Unremarkable. Vasculature: Unremarkable. No abdominal aortic aneurysm. Lymph nodes: Unremarkable. No enlarged lymph nodes. IMPRESSION: Small amount of free pelvic fluid. No abscess or free air. Interval removal of gastrostomy tube. No GI or urinary tract obstruction. Incidental findings as detailed above.
[2017-04-11] MEDS ORDERED: Pneumococcal Vacc 13 Syringe 0.5 ML DISP.SYRIN IM ONE (15:41)
[2017-04-12] MEDS: D5-1/2NS + 10mEq KCL 1,000 ML PRIMARY IV SCH ×3 (01:21→09:45)
[2017-04-12] MEDS ORDERED: LIDOCAINE W/ SODIUM BICARB 0.5 ML SYR SUBD PRN (08:51)
[2017-04-12] MEDS ORDERED: NORMAL SALINE 10 ML SYRINGE FLUSH IVP PRN (08:51)
[2017-04-12] MEDS ORDERED: Lactated Ringers 1,000 ML PRIMARY IV SCH (09:00)
--- NOTE | 2017-04-12 09:25 | PDOC(PROG) ---
Date and Time of Service: 04/12/2017 at 850 Interval History: Patient is doing fine Objective : Data - Labs CBC and BMP: 04/11/17 12:58 04/11/17 12:58 - Imaging Imaging Details: CT scan shows no evidence of abscess. Does not show any dissection Abhijit Ks tissue. - Vital Signs Vital Signs and I&O: Vital Signs - Last Taken Temperature 97.2 F 04/12/17 08:21 Pulse Rate 66 04/12/17 08:21 Respiratory Rate 18 04/12/17 08:21 Blood Pressure 136/80 04/12/17 08:21 Pulse Ox 92 04/12/17 08:21 Intake and Output (24hr x 4 totals) 04/10/17 04/11/17 04/12/17 04/13/17 05:59 05:59 05:59 05:59 Intake Total 1469 / 1469 Output Total 1050 / 1050 200 / 200 Balance 419 / 419 -200 / -200 Objective : Exam - General General Appearance: Cooperative Assessment and Plan - Patient Problems (1) Abdominal pain Current Visit: No Status: Acute Code(s): R10.9 - Unspecified abdominal pain (2) Complication of feeding tube Current Visit: No Status: Acute Code(s): K94.23 - Gastrostomy malfunction - Assessment / Plan Additional Assessment/Plan Details: We'll proceed with an EGD and PEG tube placement. Risks benefits were explained to her she understands these.
[2017-04-12 10:20] VITALS: O2SAT 93
[2017-04-12] MEDS ORDERED: PROPOFOL 10 MG/1 ML (200 MG/20 ML) VIAL IV ONE (10:37)
[2017-04-12 12:49] VITALS: BP 141/78; RESP 12; TEMP 97.8
--- NOTE | 2017-04-12 12:51 | GEN.OPNOTE ---
EGD Operative Note Surgery Date: 04/12/17 Preoperative Diagnosis: PEG tube came out has inability to eat Postoperative Diagnosis: Same Procedure: EGD with PEG Surgeon: Krish Whitney MD Anesthesia Provider: Jennie Mccullough CRNA Anesthesia Type: MAC Indications: This patient has an inability eat secondary to her medical conditions. She's had a PEG tube in the past. This came out yesterday. And needed to be changed to a new site. Findings: Esophagus: There was very deep scope inserted in the posterior pharynx guided through esophagus under direct visualization periods patient's esophagus appeared be normal GE Junction : GE junction proximal be 40 cm Fundus : Body : Body the stomach showed old healing scars from the previous PEG tube placements. Prepyloric : Free from disease Small Intestine : A lubricated flexible upper endoscope was inserted passed through the esophagus and stomach into the duodenum. Additional Details: The abdomen was prepped and draped sterile fashion. I shine the light did eliminate the skin. Palpated the stomach show the area in the stomach stomach better come through. Infiltrate local anesthetic. A large-bore needle percutaneously into the stomach. Grasped the place a guidewire through the catheter. Grab the guidewire with snare. The guidewire out the stomach. I then placed the PEG tube on the guidewire and pulled the PEG tube orally into the stomach and through the percutaneously. I then secured in place. Patient notes he is well the were no problems. Endoscopy Procedures - Endoscopy Procedures Primary Endoscopy Procedure: 25491 : EGD w/PEG tube placement
[2017-04-12] MEDS: MORPHINE SULFATE 2 MG/1 ML IVP PRN (13:15)
--- NOTE | 2017-04-12 13:18 | DCSUMMARY ---
Discharge Summary Admit Date: 04/11/17 Discharge Date: 04/12/17 Admitting Diagnosis: problems with feeding tube Discharge Diagnosis: Problem is a feeding tube Primary Surgery and Date: 12/10/2017 PEG tube placement Hospital Course: Patient if into the was found to be in the subcutaneous tissue. The question is whether or not this feeding had dissected through the tissue planes. Therefore, a CT scan was done. The CT scan was basically unremarkable. I patient had a PEG tube placed today. She'll be discharged when patient is fully awake from her IV sedation. She is use half a tube feedings tonight. Exam - Vitals Vital Signs: Vital Signs Temperature 97.8 F Temperature Source Temporal Artery Scan Pulse Rate [Pulse Oximeter 66 Right] Pulse Rate 66 Respiratory Rate 12 Blood Pressure [Left Arm] 136/80 Blood Pressure 141/78 Pulse Ox 93 Oxygen Flow Rate RA Oxygen Delivery Method Room Air Height 5 ft 3 in Weight 167 lb 9.6 oz - General General Appearance: Cooperative, Mild Distress Patient Problems - Patient Problem List (1) Abdominal pain Current Visit: No Status: Acute Code(s): R10.9 - Unspecified abdominal pain Category: Medical (2) Complication of feeding tube Current Visit: No Status: Acute Code(s): K94.23 - Gastrostomy malfunction Category: Medical
--- NOTE | 2017-04-12 14:54 | CRNA.PROGR ---
Anesthesia Time - - Start date: 04/12/17 End date: 04/12/17 - Procedure/Recovery Time Anesthesia : Time In: 11:57 Anesthesia : Time Out: 12:39 Anesthesia : Total Time: 42 - Total Anesthesia Time Total Anesthesia Time (minutes): 42 - Other Weight: 76.022 kg Height: 5 ft 3 in Body Mass Index (BMI): 29.7 Physical Status: P3 (vocal cord paralysis secondary to brain tumor. Feeding tube dislodged.) Anesthesia Type: MAC
--- NOTE | 2017-04-12 14:54 | CRNA.PROGR ---
Post Anesthesia Phase II - Post Anesthesia Phase II Patient Stable and Discharged To: Med/Surg Care Assumed By Surgeon: Jer Whitney MD Temperature: 97.8 F Pulse Rate: 66 Respiratory Rate: 12 Blood Pressure: 141/78 Pulse Ox: 93 Total Darius Score at Discharge: 9 Post Anesthesia Discharge Criteria Met: Yes
== END 2017-04-12 14:41 | disposition home or self-care (01) ==
LOC: ER 12:12 → MED/SURG 12:12 → OPS 04-12 11:36 → MED/SURG 04-12 13:05
PROVIDERS: ADMIT Surgery; ATTEND Surgery

== ENCOUNTER 2017-05-17 15:11 | Inpatient (IN) ==
--- NOTE | 2017-05-17 15:25 | PDOC ---
Dyspnea HPI - General Chief Complaint: Respiratory Complaint Stated Complaint: low oxygen levels Date Seen by Provider: 05/17/17 Time Seen by Provider: 15:17 Source: POSITIVE: Patient, Spouse Exam Limitations: POSITIVE: No limitations Treatment Prior to Arrival: REPORTS: Oxygen Nurse's Notes Reviewed & Considered: Yes - History of Present Illness Initial Comments: This is a well-developed, well-nourished, 67-year-old female, complaining of shortness of breath and swelling of her right lower jaw. Patient was seen in the clinic on Wednesday for swelling of her right lower jaw and started on amoxicillin liquid. This morning she developed shortness of breath and hypoxia with oxygen saturations in the upper 70s on the pulse ox at home. placed her on 2 L nasal cannula and her oxygenation came up to 90%. Ambulation drops her oxygen to the mid 80s, it recovers on 2 L oxygen to the low 90s when she is sitting. She denies any fevers but does have sweats, no chills. She does have shortness of breath and a mild cough. She denies nausea vomiting or diarrhea. She does have swelling of her right lower jaw and neck with tenderness to palpation. Body Location Affected: REPORTS: Head, Chest Timing: REPORTS: Gradual, Getting Worse Duration: >24 hours Severity: Moderate Quality: REPORTS: "Pain" Initiating Event: DENIES: Upper Respiratory Illness, Out of Medications, Sports , Exercise, Aspiration, Choking, Allergy, Exposure - Smoke, Exposure - Mold, Exposure - Other Allergen Context: REPORTS: Activity, Exertion Exacerbated By: REPORTS: Exertion, Coughing Associated Symptoms: REPORTS: Sweating, Chest Tightness, Productive Cough Similar Symptoms Previously: No Recently seen/treated/hospitalized: Yes Any Prior Injuries Related to Current Complaint?: No - Patient Home Medications Home Medications: Home Medications Guaifenesin [Mucinex] 600 mg PO Q12H tab 07/11/14 Testosterone Cypionate [Depo-Testosterone] 0.25 ml IM MONTHLY #1 ml 08/24/14 duloxetine 60 mg capsule,delayed release 60 mg ORAL QD #90 cap 11/16/16 amitriptyline 10 mg tablet 20 mg PO QHS #180 tab 11/25/16 hydrocodone 5 mg-acetaminophen 325 mg tablet 1 tab PO Q4-6H PRN #14 tab metoclopramide 10 mg tablet 10 mg PO DAILY #90 tab 12/30/16 estradiol cypionate 5 mg/mL intramuscular oil 3.7 mg IM MONTHLY #1 ml 01/18/17 lovastatin 40 mg tablet 40 mg PO QD #90 tab 03/16/17 omeprazole 40 mg capsule,delayed release 40 mg PO QD #90 cap 03/16/17 orphenadrine citrate ER 100 mg tablet,extended release 100 mg PO DAILY #90 tab- cap 03/25/17 amoxicillin 400 mg/5 mL oral suspension 800 mg PO BID 10 Days #200 ml 05/15/17 - Patient Allergies Allergies/Adverse Reactions: Allergies 3 Allergy/AdvReac Type Severity Reaction Status Date / Time No Known Allergies Allergy Verified 05/17/17 15:21 Past Medical History - heen HEENT History: Hard of Hearing Additional HEENT History: Lt ear, GLASSES Cardiovascular History: Hypertension Respiratory History: Other (please comment) Additional Respiratory History: 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 Gastrointestinal History: GERD, Other (please comment) Additional Gastrointestinal History: PEG tube placement since 2010- REMOVED ON , NEW PEG TUBE PLACED 04/12/17 Genitourinary History: Denies History Endocrine History: Denies History Musculoskeletal History: Arthritis Prosthesis or Implant: Yes (VENTRICULAR SHUNT) Additional Musculoskeletal History: Limited use of right side. 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...WEB FEEDER shunt Blood Disorders: Previous Bld Transfusions Psychiatric History: Depression History of Sexually Transmitted Diseases: No Cancer History: Brain History of MDRO: No History of Other Communicable Diseases: No History of Exposure to Communicable Disease: No Alcohol Use: Rarely In the Past 12 Months, Have Used or Abuse Any Substance: None Previous Surgical History: Yes Type / Date of Surgery: Multiple brain and neck surgeriesfor glomus brain tumor , Right ear repair, tracheostomy, WEB FEEDER shunt, PEG TUBE PLACEMENT, TONSILS, APPY, HYSTERECTOMY Anesthesia Reactions: No Malignant Hyperthermia: No Significant Family History: No pertinent family hx ROS - Limitations ROS Limitations: No Limitations Constitution: REPORTS: Diaphoresis Cardiovascular: REPORTS: Denies Cardiac Symptoms Respiratory: REPORTS: Cough Productive, Shortness Of Breath Neurological: REPORTS: Denies Neuro Symptoms Gastrointestinal: REPORTS: Denies GI Symptoms Endocrine: REPORTS: Denies Symptoms Musculoskeletal: REPORTS: Neck Pain, Other (Right jaw pain and swelling) Genitourinary: REPORTS: Denies Symptoms Eyes: REPORTS: Denies Symptoms ENT: REPORTS: Sore Throat, Trouble Swallowing, Other (Right jaw swelling) Skin: REPORTS: Denies Skin Symptoms Lympathic: REPORTS: Denies Lympathic Symptoms Immunologic: POSITIVE: Denies Symptoms Psychiatric: POSITIVE: Denies Psych Symptoms Dyspnea Physical Exam - General Appearance General Appearance: REPORTS: Alert, Cooperative, No Evidence of Trauma, Mild Distress - HEENT HEENT: POSITIVE: Head Inspection Nml, Eyes Inspection Nml, Ears Inspection Nml, Nose Inspection Nml, Oral/Dental Inspect. Nml, Pharynx Inspect. Nml, PERRL, EOMI , Other (Swelling of her right jaw) - Neck Neck: REPORTS: Lymphadenopathy (Right neck) - Respiratory Respiratory: REPORTS: No Respiratory Distress, No Pleuritic Chest Pain, Speaks Full Sentences, No Pain on Inspiration, Decreased Air Movement - Cardiovascular Cardiovascular: REPORTS: Regular Rate and Rhythm, Heart Sounds Normal, Equal Pulses, Strong Pulses, No Murmur, No Gallop, No Friction Rub, No JVD - Abdomen Abdomen: Soft: (All Quadrants), Normal Bowel Sounds: (All Quadrants), Denies Tenderness: (All Quadrants), No Splenomegaly: (All Quadrants), No Hepatomegaly: (All Quadrants), No Guarding: (All Quadrants), No Rebound: (All Quadrants), No Palpable Pulse: (All Quadrants), No Palpabale Mass: (All Quadrants), No Distention: (All Quadrants), No Rigidity: (All Quadrants) - Skin Skin: REPORTS: Intact, Normal For Race, Warm, Dry, No Rash - Extremities Extremity: Non-Tender: (All Extremities), Normal ROM: (All Extremities), Normal Inspection: (All Extremities), Pelvis Stable: (All Extremities) - Neurological / Psychological Neurological: POSITIVE: Affect Apporpriate, Oriented X3, perpetual inventory clerk Normal As Tested, Motor Normal, Sensation Normal Dyspnea Progress - Results Reviewed by me Xrays/CTs/US Reviewed by me: Yes Discussed with Radiologist: Yes Lab Results Reviewed by Me: Yes CBC and BMP: 05/18/17 06:04 05/17/17 15:40 - Patient's Progress Pain Medication Addressed: POSITIVE: Yes Status: POSITIVE: Improved MDM / ED Course: Patient was evaluated, an IV started, blood drawn and sent to the lab for studies, radiographic studies were obtained. Findings: CT examination of her neck shows no acute abscess present. CT of her chest for PE rule out shows no PE present, there is noted to be left upper lobe infiltrate present but is pleural-based. CBC shows white count elevated to over 12. Assessment: Pneumonia Plan: Ceftriaxone, 2 g IV, azithromycin, 500 mg IV, admission. Air Movement: POSITIVE: Fair Quality Measure Initiative: CAP: POSITIVE: Antibiotic(s), CXR or CT - Consult Consulting MD will see pt:: POSITIVE: [facility] [place] Admit Counseled: POSITIVE: Patient, Family, RE: Lab Results, RE: Radiology Results, RE : DX, RE: Need for F/U Patient Care Time - Estimated PCT Patient Care Time (In Minutes): 45 Vital Signs - Recent Vital Signs Vital Signs: Vital Signs (Last 8 hours) Temp Pulse Pulse Resp BP Pulse Ox 05/18/17 07:00 84 20 05/18/17 06:39 95 05/18/17 06:38 97.7 F 78 18 158/68 95 05/18/17 04:56 92 05/18/17 04:48 97.2 F 78 16 152/66 95 05/18/17 03:00 82 97 - VS Reviewed Vital Signs Reviewed: Yes Discharge Clinical Impression: Pneumonia Discharge Disposition: Admit to Inpatient Condition: Stable Date Decision to Admit to Inpatient: 05/17/17 Time Decision to Admit to Inpatient: 17:54
[2017-05-17] MEDS ORDERED: Sodium Chloride 0.9% 1,000 ML PRIMARY IV ONE (15:27)
[2017-05-17] MEDS ORDERED: ONDANSETRON 4 MG/2 ML VIAL IVP ONE (15:27)
[2017-05-17] MEDS ORDERED: IPRATROPIUM/ALBUTEROL SULFATE 3 ML NEB NEB ONE (15:27)
[2017-05-17] MEDS ORDERED: KETOROLAC 15 MG/1 ML VIAL IVP ONE (15:27)
[2017-05-17 15:43] LABS: BASOPHILS # (AUTO) 0.06 10*3/UL; BASOPHILS % (AUTO) 0.5 % (0-1); EOSINOPHILS # (AUTO) 0.08 10*3/UL; EOSINOPHILS % (AUTO) 0.6 % (0-8); Hematocrit [HCT] 39.6 % (37.0-47.0); Hemoglobin [HGB] 12.6 g/dL (12.0-16.0); LYMPHOCYTES # (AUTO) 1.34 10*3/uL; MEAN CORPUSCULAR HEMOGLOBIN 30.8 PG (27-31); MEAN CORPUSCULAR HGB CONC 31.8 g/dL (33-37); MEAN CORPUSCULAR VOLUME 96.8 FL (81-99); MEAN PLATELET VOLUME 9.1 FL (7.4-12.2); MONOCYTES # (AUTO) 0.99 10*3/UL (0.3-0.8); NEUTROPHILS # (AUTO) 9.84 10*3/UL; NEUTROPHILS % (AUTO) 79.7 % (50-80); RED BLOOD COUNT 4.09 10^6/uL (4.20-5.40)
[2017-05-17 15:48] LABS: PLATELET MORPHOLOGY COMMENT NORMAL MORPHOLOGY (NORM); RBC MORPHOLOGY COMMENT NORMAL MORPHOLOGY (NORM); WBC MORPHOLOGY COMMENT NORMAL MORPHOLOGY (NORM)
[2017-05-17 15:55] LABS: BLOOD UREA NITROGEN 23 mg/dL (7-22); BUN/CREATININE RATIO 32.85 (6-20); SERUM ALBUMIN 4.6 g/dL (3.5-4.8)
--- NOTE | 2017-05-17 16:11 | EKG ---
[address] [address] Measurements Intervals [place] Rate: 81 P: 5 NE: 151 QRS: 39 QRSD: 110 T: 12 QT: 415 QTc: 452 Interpretive Statements SINUS RHYTHM Compared to ECG 06/04/2016 14:44:50 No significant changes Electronically Signed On 05-21-17 09:28:33 MDT by Simba Molina MD [email or web address]
[2017-05-17 16:27] LABS: VENOUS PH 7.45 (7.32-7.42)
--- NOTE | 2017-05-17 16:47 | DI ---
PA /LATERAL CHEST X-RAY, 05/17/2017 3:27 PM : Clinical History: Shortness of breath. Previous Exam: 04/12/2016. There is no acute soft tissue or bony abnormality. The patient has a permanent tracheostomy tube and the tube is in the appropriate position. Heart size is normal. Lungs are clear. Mediastinal structure s are normal. There are no pulmonary nodules. Reading: Normal chest x-ray. There has been no significant interval change.
--- NOTE | 2017-05-17 17:26 | DI ---
CT ANGIOGRAM OF THE CHEST, 05/17/2017 4:32 PM : Clinical History: Low O2 saturation. Elevated D-dimer test. Previous Exam: 04/12/2016. Scans are performed from the base of the neck to the lower lung bases following IV administration of 55 mL of Isovue 300. Proprietary automated bolus tracking software was used to verify the timing of t he injection. Sagittal and coronal images using non MIPS and MIPS technique are generated. The base of the neck and thoracic inlet are normal. The patient has a permanent tracheostomy tube in place. There are no abnormal axillary, supraclavicular, mediastinal, or hilar nodes. There are calcif ied lymph nodes in the left hilum indicating old granulomatous disease. The heart is normal. Faint ca lcifications are seen in the proximal third of the LAD. No pulmonary emboli are identified. There is pulmonary arterial hypertension. There is a patchy pleural-based density in the left upper lobe abutt ing the major fissure, but the vessels to this area are patent. Both adrenal glands, the spleen, and the visualized portions of the liver and pancreas are normal. READIN. Negative CT angiogram of the chest. No pulmonary emboli are identified. There is a small pleural- based patchy infiltrate located in the left upper lobe abutting the superior half of the major fissur e. However, this area shows normal appearing blood vessels. 2. There is pulmonary arterial hypertension.
[2017-05-17] MEDS ORDERED: cefTRIAXone Inj 2 GM in Sodium Chloride 0.9% 100 ML IV ONE (17:53)
--- NOTE | 2017-05-17 18:22 | PDOC ---
HPI - History of Present Illness History of Present Illness: This very nice 67-year-old female who comes in the ER with the shortness of breath and some swelling of her right lower jaw she was [facility] and was started on amoxicillin this morning she had some hypoxia with saturations over oxygen in the upper 70s with her pulse ox at home denies any chest pain but does have some diaphoresis but no chills on CT scan report there was mention of pulmonary most likely left upper lobe pneumonia therefore patient will be admitted for antibiotic IV fluids and oxygen Past Medical History Medical History: Multiple medical problems as well documented in her chart. Surgical History: Multiple surgeries as documented in her chart. Tobacco Use: Never Smoker In the Past 12 Months, Have Used or Abuse Any of the Following Substance: None Medication / Allergies Home Medications: Home Medications 3 Medication Instructions Recorded Confirmed Type Guaifenesin [Mucinex] 600 mg PO Q12H tab 07/11/14 05/15/17 History Testosterone Cypionate 0.25 ml IM MONTHLY #1 ml 08/24/14 05/15/17 History [Depo-Testosterone] duloxetine 60 mg capsule,delayed 60 mg ORAL QD #90 cap 11/16/16 05/17/17 Rx release amitriptyline 10 mg tablet 20 mg PO QHS #180 tab 11/25/16 05/15/17 Rx hydrocodone 5 mg-acetaminophen 325 1 tab PO Q4-6H PRN #14 tab 11/30/16 05/17/17 Rx mg tablet metoclopramide 10 mg tablet 10 mg PO DAILY #90 tab 12/30/16 05/17/17 Clinic estradiol cypionate 5 mg/mL 3.7 mg IM MONTHLY #1 ml 01/18/17 05/17/17 Rx intramuscular oil lovastatin 40 mg tablet 40 mg PO QD #90 tab 03/16/17 05/17/17 Rx omeprazole 40 mg capsule,delayed 40 mg PO QD #90 cap 03/16/17 05/17/17 Rx release orphenadrine citrate ER 100 mg 100 mg PO DAILY #90 tab-cap 03/25/17 05/17/17 Rx tablet,extended release amoxicillin 400 mg/5 mL oral 800 mg PO BID 10 Days #200 ml 05/15/17 05/17/17 Rx suspension Allergies/Adverse Reactions: Allergies 3 Allergy/AdvReac Type Severity Reaction Status Date / Time No Known Allergies Allergy Verified 05/17/17 15:21 Review of Systems - Review of Systems All Systems: Reviewed & No Additional Complaints Except as Stated - Mouth/Throat Mouth/Throat Exam: REPORTS: Hoarseness, Other (Right jaw pain on palpation) Exam - Vitals Vital Signs: Vital Signs Temperature 96.6 F Temperature Source Temporal Artery Scan Pulse Rate [Pulse Oximeter] 91 Pulse Rate 77 Respiratory Rate 18 Blood Pressure [Left Arm] 128/65 Pulse Ox 100 Oxygen Delivery Method Room Air Height 5 ft 3 in Weight 165 lb - General General Appearance: No Acute Distress, Cooperative - Head Head Exam: Normal Inspection, Atraumatic Additional Head Exam Details: Right jaw pain with palpation negative CT scan no abscesses - ENT ENT Exam: POSITIVE: Normal Exam, Normal External Ear Exam, Normal Oropharynx, TM 's Normal Bilaterally, Mucous Membranes Moist - Neck Neck Exam: Normal Inspection, Full ROM, No Tenderness, Tenderness (See above right mandible), No Lymphadenopathy, No Thyromegaly, JVP is not Raised - Respiratory Respiratory Exam: POSITIVE: Clear to Auscultation - Bilaterally, Breathing Non Labored, Normal To Percussion, Normal to Percussion and Palpation - Cardiovascular Cardiovascular Exam: POSITIVE: RRR, No Murmur, No Clicks, No Gallops, No Rubs, PMI Non-Displaced - GI/Abdominal GI/Abdominal Exam: POSITIVE: Normal Bowel Sounds, Non Tender, Non Distended, Soft, No Masses, No Hepatomegaly, No Splenomegaly, No Organomegaly - Extremities Extremities Exam: POSITIVE: No Clubbing Present, No Edema Present, No Cyanosis Present Results - Labs CBC and BMP: 05/17/17 15:40 05/17/17 15:40 Assessment and Plan - Patient Problems (1) Pneumonia Current Visit: Yes Status: Acute Comment: Continue ceftriaxone and Zithromax IV blood cultures were drawn IV fluid oxygen supportive care CT scan reviewed continuing medications for other medical problems Code(s): J18.9 - Pneumonia, unspecified organism (2) GERD (gastroesophageal reflux disease) Current Visit: No Status: Acute Onset Date: 11/06/11 Code(s): K21.9 - Gastro-esophageal reflux disease without esophagitis (3) Jaw pain Current Visit: Yes Status: Acute Comment: No abscess on CT scan or other acute finding continue ceftriaxone Code(s): R68.84 - Jaw pain
[2017-05-17] MEDS ORDERED: IPRATROPIUM/ALBUTEROL SULFATE 3 ML NEB NEB PRN (19:07)
[2017-05-17] MEDS ORDERED: LIDOCAINE W/ SODIUM BICARB 0.5 ML SYR SUBD PRN (19:07)
[2017-05-17] MEDS ORDERED: ONDANSETRON 4 MG/2 ML VIAL IVP PRN (19:07)
--- NOTE | 2017-05-17 19:23 | DI ---
CT SCAN OF THE NECK WITH IV CONTRAST, 05/17/2017 3:27 PM : Clinical History: Soft tissue swelling in the right parotid region. The patient has been treated with antibiotics. This information was furnished to me by the attending emergency room physician. Previous Exam: 08/05/2010. Scans are obtained from the angle of Livan to above the petrous pyramids with IV contrast. Sagittal a nd coronal images are generated. 38 ml of Isovue 300 was injected IV. The cervical vertebral bodies are of normal height and size. There is disc space narrowing at every c ervical level with anterior subluxation of C3 on C4 by approximately 2 mm. The patient has had a righ t occipital craniectomy with resection into the right temporal bone and the floor of the middle fossa . Portions of the mastoid air cells and the external auditory canal have been resected and the lubrication supervisor al auditory canal has been closed. Posterior fusion has been performed between the occiput and C2 wit h wires. There is a slightly more prominent amount of tissue in the right parotid region compared to the left with some inflammatory/infiltrative change at the interface between the subcutaneous fat in the superficial margin of the parotid gland. There is no evidence of an abscess. 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 The right half of the clivus posteriorly has been rese cted and there is enhancing soft tissue located along the location of the bone defect. Presumably, th is represents scar tissue since it has not changed in size since the previous precontrast study. Ther e is an infarct of the right cerebellar hemisphere there are some mild to moderately enlarged lymph n odes in the posterior triangle on the right side and in the anterior triangle. No adenopathy is seen on the left side. Both carotid arteries show calcifications in the region of the carotid bulbs but no significant occlusive disease is identified. The thyroid the LAD and both submandibular glands are n ormal. READIN. There is no discrete soft tissue mass or evidence of an abscess on either side. 2. Status post extensive surgery involving the right side of the base of the skull including the rig ht petrous pyramids and the right occipital bone and the clivus. There is enhancing tissue at the loc ation of the defect in the base of the skull but the size and overall appearance is identical to the previous noncontrast study suggesting this represents scar tissue. 3. The external auditory canal has been closed with respect to the soft tissues and the bony canal c omponent has been resected. 4. 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 5. Right-sided cerebellar infarct. Status post posterior fusions between the occiput and C2.
[2017-05-17] MEDS: NORMAL SALINE 10 ML SYRINGE FLUSH IVP PRN (19:49)
[2017-05-17] MEDS ORDERED: AMITRIPTYLINE HCL 10 MG PO SCH (21:00)
[2017-05-17] MEDS ORDERED: Non-Formulary Drug (Lovastatin [Lovastatin] 40 MG) PO SCH (21:00)
[2017-05-17] MEDS: HEPARIN 5000 UNIT/1 ML SUBCUT SCH (21:24)
[2017-05-17] MEDS: OMEPRAZOLE 40 MG CAPSULE PO SCH (21:24)
[2017-05-17] MEDS: HYDROcodone-APAP 5 MG -325 MG TABLET PO PRN (23:19)
[2017-05-18] MEDS: HYDROcodone-APAP 5 MG -325 MG TABLET PO PRN ×2 (03:06→07:27)
[2017-05-18] MEDS: HEPARIN 5000 UNIT/1 ML SUBCUT SCH ×2 (04:28→11:26)
[2017-05-18 06:39] VITALS: TEMP 97.7; O2SAT 95
[2017-05-18 06:43] LABS: BASOPHILS # (AUTO) 0.06 10*3/UL; BASOPHILS % (AUTO) 0.7 % (0-1); EOSINOPHILS # (AUTO) 0.22 10*3/UL; EOSINOPHILS % (AUTO) 2.5 % (0-8); Hemoglobin [HGB] 10.3 g/dL (12.0-16.0); LYMPHOCYTES # (AUTO) 0.99 10*3/uL; MEAN CORPUSCULAR HEMOGLOBIN 30.6 PG (27-31); MEAN CORPUSCULAR HGB CONC 31.2 g/dL (33-37); MEAN CORPUSCULAR VOLUME 97.9 FL (81-99); MEAN PLATELET VOLUME 9.2 FL (7.4-12.2); MONOCYTES # (AUTO) 1.03 10*3/UL (0.3-0.8); MONOCYTES % (AUTO) 11.5 % (5-15); NEUTROPHILS # (AUTO) 6.61 10*3/UL; NEUTROPHILS % (AUTO) 73.8 % (50-80); RED BLOOD COUNT 3.37 10^6/uL (4.20-5.40)
[2017-05-18 06:50] LABS: PLATELET MORPHOLOGY COMMENT NORMAL MORPHOLOGY (NORM); RBC MORPHOLOGY COMMENT NORMAL MORPHOLOGY (NORM); WBC MORPHOLOGY COMMENT NORMAL MORPHOLOGY (NORM)
[2017-05-18] MEDS: OMEPRAZOLE 40 MG CAPSULE PO SCH (07:27)
[2017-05-18] MEDS ORDERED: DULOXETINE 60 MG CAPSULE PO SCH (09:00)
[2017-05-18] MEDS ORDERED: Metoclopramide Tab 10 MG TAB PO SCH (09:00)
[2017-05-18] MEDS ORDERED: ASCORBIC ACID 500 MG TABLET PO SCH (09:00)
[2017-05-18] MEDS ORDERED: HYDROmorphone 2 MG/1 ML IVP PRN (09:19)
[2017-05-18 11:19] VITALS: BP 134/55; RESP 18
--- NOTE | 2017-05-18 11:20 | DCSUMMARY ---
Hospitalization Summary Hospital Course: Final Discharge Diagnosis: Current Visit Problems Problem Status Onset Code Pneumonia Acute J18.9 Jaw pain Acute R68.84 Diagnostic Data, Laboratory Data, and Procedures of Signifigance: Abnormal Lab Results (Last 24 Hours) Range/Units 05/17/17 05/17/17 05/17/17 15:34 15:40 15:40 WBC (4.8-10.8) 10^3/uL 12.35 H RBC (4.20-5.40) 10^6/uL 4.09 L Hgb (12.0-16.0) g/dL Hct (37.0-47.0) % MCHC (33-37) g/dL 31.8 L Plt Count (140-350) 10*3/uL 517 H [place] # (Auto) (0.3-0.8) 10*3/UL 0.99 H D-Dimer (0.00-0.59) mg/L 0.72 H VBG pH (7.32-7.42) 7.45 H VBG pCO2 (45-55) mmHg 41 L VBG HCO3 (22-26) mmol/L 29 H VBG Base Excess (-2-2) MMOL/L 5 H Chloride (98-112) meq/L BUN (7-22) mg/dL BUN/Creatinine Ratio (6-20) Glucose (78-110) mg/dL Magnesium (1.6-2.4) mg/dL C-Reactive Protein (0.0-0.9) mg/dL NT-Pro-B Natriuret Pep (0-125) PG/ML Total Protein (6.1-8.0) g/dL Albumin/Globulin Ratio (1.3-2.0) mg/g Range/Units 05/17/17 05/18/17 15:40 06:04 WBC (4.8-10.8) 10^3/uL RBC (4.20-5.40) 10^6/uL 3.37 L Hgb (12.0-16.0) g/dL 10.3 L Hct (37.0-47.0) % 33.0 L MCHC (33-37) g/dL 31.2 L Plt Count (140-350) 10*3/uL 449 H [place] # (Auto) (0.3-0.8) 10*3/UL 1.03 H D-Dimer (0.00-0.59) mg/L VBG pH (7.32-7.42) VBG pCO2 (45-55) mmHg VBG HCO3 (22-26) mmol/L VBG Base Excess (-2-2) MMOL/L Chloride (98-112) meq/L 95 L BUN (7-22) mg/dL 23 H BUN/Creatinine Ratio (6-20) 32.85 H Glucose (78-110) mg/dL 160 H Magnesium (1.6-2.4) mg/dL 2.5 H C-Reactive Protein (0.0-0.9) mg/dL 17.9 H NT-Pro-B Natriuret Pep (0-125) PG/ML 218 H Total Protein (6.1-8.0) g/dL 8.6 H Albumin/Globulin Ratio (1.3-2.0) mg/g 1.10 L History and Physical pertinent to Admission: Course of Hospitalization: Is a very nice 67-year-old female who was seen in the ER because of right sided the jaw pain she was given amoxicillin in the outpatient setting and ER physician did a CT scan of her Kj soft tissues of the neck neck is her d- dimer was slightly elevated the CTA of her chest was done as well which showed mild the possible pneumonia she did have a white count of 12,000. CT of the jaw at the chart note did not show any abscess there was very painful to touch this morning I've opted to take out the dentures and after we have done this pain instantly disappeared and I was able to touch her right jaw with no excruciating pain like I did last night. I believe this is probably irritation from her dentures. I also gave her the number of Dr. Frank is maxillofacial surgeon in [place] to follow up with if this pain is not resolved she also is getting a follow-up appointment with her primary care physician tomorrow morning to check on the jaw. Patient really wants to be discharged home I did walk her and her saturation drops to 83% on room air I will send her home with oxygen 2 L/m 24 7 and then the follow-up in the 2 weeks to see if she still needs this I upped her amoxicillin to 1 g 3 times a day to treat her pneumonia for 5 more days via PEG tube her son is in the room with her and agrees with the plan and so does the patient discussed with nursing as well I will give her 2 mg of ceftriaxone before she goes she had a little have received 2 doses of IV antibiotics She is not tachycardic and is comfortable tolerating liquids and by mouth a PEG tube On the date of discharge, the patient was examined: Gen.: No acute distress, alert, nontoxic right jaw and not the painful to palpation today Heart: Regular rate and rhythm, no murmurs, clicks, gallops, or rubs Lungs: Clear to auscultation bilaterally, breathing is nonlabored Abdomen/GI: Normal tones on auscultation, soft, nontender, nondistended Musculoskeletal/extremities: No clubbing, cyanosis, or edema Vitals reviewed and are listed below Vital Signs (24 hrs) Temp Pulse Pulse Resp BP BP BP 05/18/17 07:00 73 84 20 05/18/17 06:39 05/18/17 06:38 97.7 F 78 18 158/68 05/18/17 04:56 05/18/17 04:48 97.2 F 78 16 152/66 05/18/17 03:00 82 05/18/17 00:21 97.8 F 88 16 158/64 05/17/17 23:00 79 05/17/17 19:41 97.3 F 80 20 136/62 05/17/17 19:20 20 05/17/17 19:13 97.9 F 80 12 128/64 05/17/17 18:28 97.9 F 80 12 128/64 05/17/17 16:01 77 18 05/17/17 16:00 77 18 05/17/17 15:21 96.6 F L 91 18 128/65 Pulse Ox 05/18/17 07:00 05/18/17 06:39 95 05/18/17 06:38 95 05/18/17 04:56 92 05/18/17 04:48 95 05/18/17 03:00 97 05/18/17 00:21 99 05/17/17 23:00 98 05/17/17 19:41 98 05/17/17 19:20 05/17/17 19:13 94 05/17/17 18:28 94 05/17/17 16:01 100 05/17/17 16:00 97 05/17/17 15:21 88 Assessment and Plan: 1. As per discharge assessments above 2. Disposition: Home with oxygen 3. Condition on discharge, stable and improved. 4. Diet: regular diet 5. Activities: resume normal activities 6. Follow-Up: 1. PCP tomorrow 2. 7. Medications at the Time of Discharge: Home Medications 3 Medication Instructions Recorded Confirmed Type Guaifenesin [Mucinex] 600 mg PO Q12H tab 07/11/14 05/15/17 History Testosterone Cypionate 0.25 ml IM MONTHLY #1 ml 08/24/14 05/15/17 History [Depo-Testosterone] duloxetine 60 mg capsule,delayed 60 mg ORAL QD #90 cap 11/16/16 05/17/17 Rx release amitriptyline 10 mg tablet 20 mg PO QHS #180 tab 11/25/16 05/15/17 Rx hydrocodone 5 mg-acetaminophen 325 1 tab PO Q4-6H PRN #14 tab 11/30/16 05/17/17 Rx mg tablet metoclopramide 10 mg tablet 10 mg PO DAILY #90 tab 12/30/16 05/17/17 Clinic estradiol cypionate 5 mg/mL 3.7 mg IM MONTHLY #1 ml 01/18/17 05/17/17 Rx intramuscular oil lovastatin 40 mg tablet 40 mg PO QD #90 tab 03/16/17 05/17/17 Rx omeprazole 40 mg capsule,delayed 40 mg PO QD #90 cap 03/16/17 05/17/17 Rx release orphenadrine citrate ER 100 mg 100 mg PO DAILY #90 tab-cap 03/25/17 05/17/17 Rx tablet,extended release Also she will be taken amoxicillin 3 times a day via PEG tube liquid form 8. Time, care, counseling and coordination of care for this discharge is greater than 30 minutes. Exam - Vitals Vital Signs: Vital Signs Temperature 97.7 F Temperature Source Temporal Artery Scan Pulse Rate [Pulse Oximeter] 84 Pulse Rate 73 Respiratory Rate 20 Blood Pressure [Right Arm] 158/68 Blood Pressure [Left Arm] 158/64 Blood Pressure 128/64 Pulse Ox 95 Oxygen Flow Rate 1 Oxygen Delivery Method Nasal Cannula Height 5 ft 3 in Weight 167 lb 3.212 oz Patient Problems - Patient Problem List (1) Pneumonia Current Visit: Yes Status: Acute Code(s): J18.9 - Pneumonia, unspecified organism Category: Medical (2) GERD (gastroesophageal reflux disease) Current Visit: No Status: Acute Onset Date: 11/06/11 Code(s): K21.9 - Gastro-esophageal reflux disease without esophagitis Category: Medical (3) Jaw pain Current Visit: Yes Status: Acute Code(s): R68.84 - Jaw pain Category: Medical
[2017-05-18] MEDS ORDERED: cefTRIAXone Inj 2 GM in Sodium Chloride 0.9% 100 ML IV SCH ×2 (14:15→18:00)
[2017-05-18] MEDS ORDERED: Sodium Chloride 0.9% 50 ML ONE (14:25)
[2017-05-18] MEDS: NORMAL SALINE 10 ML SYRINGE FLUSH IVP PRN (14:29)
== END 2017-05-18 16:13 | disposition home or self-care (01) | DRG 195 ==
LOC: ER 15:11 → MED/SURG 17:58
PROVIDERS: ADMIT Internal Medicine; ATTEND Internal Medicine